=== PATIENT | female | born 2000 | race Caucasian/White ===

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

== ENCOUNTER 2022-08-10 10:43 | Emergency (ER) | payer OTHER ==
[2022-08-10 10:49] VITALS: TEMP 97.7
[2022-08-10 10:59] LABS: Glucose,Whole Blood 90 mg/dL (70-110)
[2022-08-10] MEDS ORDERED: ONDANSETRON 4 MG/2 ML VIAL IVP STA (11:07)
[2022-08-10] MEDS ORDERED: SODIUM CHLORIDE 0.9% 500 ML 500 ML IV STA (11:07)
--- NOTE | 2022-08-10 11:13 | ED ---
General Adult HPI - General Chief complaint: Nausea/Vomiting/Diarrhea Stated complaint: cold sweats, light headed, nausea Time Seen by Provider: 08/10/22 11:05 Source: patient, RN notes reviewed, old records reviewed Mode of arrival: ambulatory Limitations: no limitations - History of Present Illness Initial comments: 22-year-old nontoxic-appearing female presents to the emergency room feeling anxious and shaky with nausea and lower mid abdominal pain. Patient states that she has had these similar symptoms multiple times over several years and told she had ovarian cysts. She states that she has a history of ruptured ovarian cysts and this pain is similar, however she is complaining of a headache and feeling shaky and thinks she may be dehydrated or have high blood glucose levels. She has nausea but no vomiting. No fevers. No diarrhea. States she is sexually active but denies any pelvic pain, vaginal bleeding or vaginal discharge. -: hour(s) (since this morning) Severity scale (1-10): 8 Associated Symptoms: headaches, nausea/vomiting (no vomiting), other (abdominal pain, shaky) - Related Data Home Medications Medication Instructions Recorded Confirmed medroxyPROGESTERone [Depo-Provera] 150 mg IM ONCE 08/10/22 08/10/22 Previous Rx's Medication Instructions Recorded Nitrofurantoin Monohyd/M-Cryst 100 mg PO Q12HR 5 Days #10 cap 08/10/22 [Macrobid] Allergies Allergy/AdvReac Type Severity Reaction Status Date / Time cantaloupe AdvReac Nausea & Verified 08/10/22 11:27 Vomiting & Diarrhea Sesame Seed AdvReac Nausea & Verified 08/10/22 11:26 Vomiting & Diarrhea Review of Systems ROS Statement: Those systems with pertinent positive or pertinent negative responses have been documented in the HPI. ROS Other: All systems not noted in ROS Statement are negative. Past Medical History Past Medical History: No Reported History Additional Past Medical History / Comment(s): MTHFR blood mutation, ovarian cyst rupture 2017, endometriosis History of Any Multi-Drug Resistant Organisms: None Reported Past Surgical History: Adenoidectomy, Ear Surgery Past Psychological History: Anxiety, Depression Smoking Status: Current some day smoker Past Alcohol Use History: None Reported Past Drug Use History: Marijuana General Exam Limitations: no limitations General appearance: alert, in no apparent distress Head exam: Present: atraumatic, normocephalic Eye exam: Present: normal appearance. Absent: scleral icterus, conjunctival injection, periorbital swelling ENT exam: Present: mucous membranes moist Neck exam: Present: full ROM. Absent: meningismus Respiratory exam: Absent: respiratory distress, accessory muscle use Cardiovascular Exam: Present: tachycardia GI/Abdominal exam: Present: soft. Absent: distended, tenderness, guarding, rebound, rigid Extremities exam: Present: full ROM, normal capillary refill. Absent: pedal edema Neurological exam: Present: alert, oriented X3 Psychiatric exam: Present: normal affect, normal mood Skin exam: Present: warm, dry, normal color. Absent: cyanosis, diaphoretic, petechiae, pallor Course Vital Signs 08/10/22 08/10/22 10:46 12:49 Temperature 97.7 F Pulse Rate 103 H Pulse Rate [ 80 Sitting Pulse Oximetery] Pulse Rate [ 111 H Standing Pulse Oximetery] Pulse Rate [ 67 Supine Pulse Oximetery] Respiratory 17 18 Rate Blood Pressure 124/86 Blood Pressure 128/86 [Right Arm Sitting] Blood Pressure 134/93 [Right Arm Standing] Blood Pressure 127/72 [Right Arm Supine] O2 Sat by Pulse 99 98 Oximetry Medical Decision Making - Medical Decision Making Patient was given IV fluids and Zofran for her nausea with resolution of her symptoms. Abdomen is soft and nontender. Patient is afebrile. Hemoglobin and hematocrit are stable. X-rays are unremarkable. Blood glucose 90. Urinalysis positive for UTI, negative for . She was prescribed Macrobid and directed to follow up with the primary care doctor next week. She is agreeable to this plan of care. Case discussed with Dr. Mcnamara Was pt. sent in by a medical professional or institution (, PA, OCCUPATIONAL HEALTH AND SAFETY ADVISER, urgent care, hospital, or jail...) When possible be specific @ -No Did you speak to anyone other than the patient for history (EMS, parent, family, police, friend...)? What history was obtained from this source @ -No Did you review nursing and triage notes (agree or disagree)? Why? @ -I reviewed and agree with nursing and triage notes Were old charts reviewed (outside hosp., previous admission, EMS record, old EKG, old radiological studies, urgent care reports/EKG's, jail records)? Report findings @ -No old charts were reviewed Differential Diagnosis (chest pain, altered mental status, abdominal pain women, abdominal pain men, vaginal bleeding, weakness, fever, dyspnea, syncope, headache, dizziness, GI bleed, back pain, seizure, CVA, palpatations, mental health, musculoskeletal)? @ -UTI, gastritis, cystitis, renal calculi, anxiety, dehydration EKG interpreted by me (3pts min.). @ -n/a X-rays interpreted by me (1pt min.). @ -None done CT interpreted by me (1pt min.). @ -None done U/S interpreted by me (1pt. min.). @ -None done What testing was considered but not performed or refused? (CT, X-rays, U/S, labs)? Why? @ -None What meds were considered but not given or refused? Why? @ -None Did you discuss the management of the patient with other professionals (professionals i.e. , PA, OCCUPATIONAL HEALTH AND SAFETY ADVISER, lab, RT, psych nurse, social services director, dance critic, teacher, credit risk officer, returned case inspector)? Give summary @ -No Was smoking cessation discussed for >3mins.? @ -No Was critical care preformed (if so, how long)? @ -No Were there social determinants of health that impacted care today? How? (Homelessness, low income, unemployed, alcoholism, drug addiction, transportation, low edu. Level, literacy, decrease access to med. care, [facility], rehab)? @ -No Was there de-escalation of care discussed even if they declined (Discuss DNR or withdrawal of care, Hospice)? DNR status @ -No What co-morbidities impacted this encounter? (DM, HTN, Smoking, COPD, CAD, Cancer, CVA, ARF, Chemo, Hep., AIDS, mental health diagnosis, sleep apnea, morbid obesity)? @ -None Was patient admitted / discharged? Hospital course, mention meds given and r oute, prescriptions, significant lab abnormalities, going to OR and other pertinent info. @ -Discharged Undiagnosed new problem with uncertain prognosis? @ -No Drug Therapy requiring intensive monitoring for toxicity (Heparin, Nitro, Insulin, Cardizem)? @ -No Were any procedures done? @ -No Diagnosis/symptom? @ -UTI Acute, or Chronic, or Acute on Chronic? @ -Acute Uncomplicated (without systemic symptoms) or Complicated (systemic symptoms)? @ -default Side effects of treatment? @ -No Exacerbation, Progression, or Severe Exacerbation? @ -No Poses a threat to life or bodily function? How? (Chest pain, [place], [place], pneumonia, PE, COPD, DKA, ARF, appy, cholecystitis, CVA, Diverticulitis, Homicidal, Suicidal, threat to staff... and all critical care pts) @ -No - Lab Data Result diagrams: 08/10/22 11:43 08/10/22 11:43 Lab Results 08/10/22 08/10/22 08/10/22 Range/Units 10:57 11:43 11:43 WBC 4.4 (3.8-10.6) k/uL RBC 4.92 (3.80-5.40) m/uL Hgb 14.2 (11.4-16.0) gm/dL Hct 43.0 (34.0-46.0) % MCV 87.4 (80.0-100.0) fL MCH 28.7 (25.0-35.0) pg MCHC 32.9 (31.0-37.0) g/dL RDW 12.2 (11.5-15.5) % Plt Count 244 (150-450) k/uL MPV 7.7 Neutrophils % 64 % Lymphocytes % 27 % Monocytes % 6 % Eosinophils % 1 % Basophils % 1 % Neutrophils # 2.8 (1.3-7.7) k/uL Lymphocytes # 1.2 (1.0-4.8) k/uL Monocytes # 0.3 (0-1.0) k/uL Eosinophils # 0.0 (0-0.7) k/uL Basophils # 0.0 (0-0.2) k/uL Sodium (137-145) mmol/L Potassium (3.5-5.1) mmol/L Chloride (98-107) mmol/L Carbon Dioxide (22-30) mmol/L Anion Gap mmol/L BUN (7-17) mg/dL Creatinine (0.52-1.04) mg/dL Est GFR (CKD-EPI)AfAm (>60 ml/min/1.73 sqM) Est GFR (CKD-EPI)NonAf (>60 ml/min/1.73 sqM) Glucose (74-99) mg/dL POC Glucose (mg/dL) 90 (70-110) mg/dL POC Glu Carbonator ID Sharon Vargas Calcium (8.4-10.2) mg/dL Total Bilirubin (0.2-1.3) mg/dL AST (14-36) U/L ALT (4-34) U/L Alkaline Phosphatase (38-126) U/L Total Protein (6.3-8.2) g/dL Albumin (3.5-5.0) g/dL Amylase (30-110) U/L Lipase (23-300) U/L Urine Color Yellow Urine Appearance Cloudy H (Clear) Urine pH 5.5 (5.0-8.0) Ur Specific [place] 1.030 (1.001-1.035) Urine Protein 1+ H (Negative) Urine Glucose (UA) Negative (Negative) Urine Ketones Trace H (Negative) Urine Blood Large H (Negative) Urine Nitrite Negative (Negative) Urine Bilirubin Negative (Negative) Urine Urobilinogen 2.0 (<2.0) mg/dL Ur Leukocyte Esterase Large H (Negative) Urine RBC 3 (0-5) /hpf Urine WBC 59 H (0-5) /hpf Ur Squamous Epith Cells 33 H (0-4) /hpf Urine Bacteria Moderate H (None) /hpf Urine Mucus Many H (None) /hpf Urine HCG, Qual (Not Detectd) 08/10/22 08/10/22 Range/Units 11:43 11:43 WBC (3.8-10.6) k/uL RBC (3.80-5.40) m/uL Hgb (11.4-16.0) gm/dL Hct (34.0-46.0) % MCV (80.0-100.0) fL MCH (25.0-35.0) pg MCHC (31.0-37.0) g/dL RDW (11.5-15.5) % Plt Count (150-450) k/uL MPV Neutrophils % % Lymphocytes % % Monocytes % % Eosinophils % % Basophils % % Neutrophils # (1.3-7.7) k/uL Lymphocytes # (1.0-4.8) k/uL Monocytes # (0-1.0) k/uL Eosinophils # (0-0.7) k/uL Basophils # (0-0.2) k/uL Sodium 139 (137-145) mmol/L Potassium 4.7 (3.5-5.1) mmol/L Chloride 102 (98-107) mmol/L Carbon Dioxide 27 (22-30) mmol/L Anion Gap 10 mmol/L BUN 14 (7-17) mg/dL Creatinine 0.89 (0.52-1.04) mg/dL Est GFR (CKD-EPI)AfAm >90 (>60 ml/min/1.73 sqM) Est GFR (CKD-EPI)NonAf >90 (>60 ml/min/1.73 sqM) Glucose 82 (74-99) mg/dL POC Glucose (mg/dL) (70-110) mg/dL POC Glu Carbonator ID Calcium 9.8 (8.4-10.2) mg/dL Total Bilirubin 0.9 (0.2-1.3) mg/dL AST 21 (14-36) U/L ALT 21 (4-34) U/L Alkaline Phosphatase 29 L (38-126) U/L Total Protein 7.1 (6.3-8.2) g/dL Albumin 4.4 (3.5-5.0) g/dL Amylase 58 (30-110) U/L Lipase 108 (23-300) U/L Urine Color Urine Appearance (Clear) Urine pH (5.0-8.0) Ur Specific [place] (1.001-1.035) Urine Protein (Negative) Urine Glucose (UA) (Negative) Urine Ketones (Negative) Urine Blood (Negative) Urine Nitrite (Negative) Urine Bilirubin (Negative) Urine Urobilinogen (<2.0) mg/dL Ur Leukocyte Esterase (Negative) Urine RBC (0-5) /hpf Urine WBC (0-5) /hpf Ur Squamous Epith Cells (0-4) /hpf Urine Bacteria (None) /hpf Urine Mucus (None) /hpf Urine HCG, Qual Not Detected (Not Detectd) Disposition Clinical Impression: UTI (urinary tract infection) Disposition: HOME SELF-CARE Condition: Good Instructions (If sedation given, give patient instructions): Urinary Tract Infection in Women (ED) Additional Instructions: Increase your fluid intake. Take antibiotics as prescribed. Follow-up with the primary care doctor next week. Return to the emergency room with any new or concerning symptoms. Prescriptions: Nitrofurantoin Monohyd/M-Cryst [Macrobid] 100 mg PO Q12HR 5 Days #10 cap Is patient prescribed a controlled substance at d/c from ED?: No Referrals: None,Stated [Primary Care Provider] - 1-2 days Time of Disposition: 12:44
[2022-08-10 12:08] LABS: ALT 21 U/L (4-34); AST 21 U/L (14-36); African American GFR (CKD) >90 (>60 ml/min/1.73 sqM); Albumin 4.4 g/dL (3.5-5.0); Alkaline Phosphatase 29 U/L (38-126); Amylase 58 U/L (30-110); Anion Gap 10 mmol/L; Basophils % (A) 1 %; Blood Urea Nitrogen 14 mg/dL (7-17); Calcium 9.8 mg/dL (8.4-10.2); Carbon Dioxide 27 mmol/L (22-30); Chloride 102 mmol/L (98-107); Eosinophils % (A) 1 %; Glucose 82 mg/dL (74-99); HGB 14.2 gm/dL (11.4-16.0); Lipase 108 U/L (23-300); Lymphocytes # (A) 1.2 k/uL (1.0-4.8); Lymphocytes % (A) 27 %; MCH 28.7 pg (25.0-35.0); MCHC 32.9 g/dL (31.0-37.0); MCV 87.4 fL (80.0-100.0); Mean Platelet Volume 7.7; Monocytes # (A) 0.3 k/uL (0-1.0); Monocytes % (A) 6 %; Neutrophils # (A) 2.8 k/uL (1.3-7.7); Neutrophils % (A) 64 %; Non-African American GFR(CKD) >90 (>60 ml/min/1.73 sqM); Platelet Count 244 k/uL (150-450); Potassium 4.7 mmol/L (3.5-5.1); RBC 4.92 m/uL (3.80-5.40); RDW 12.2 % (11.5-15.5); Sodium 139 mmol/L (137-145); Total Bilirubin 0.9 mg/dL (0.2-1.3); Total Protein 7.1 g/dL (6.3-8.2); WBC 4.4 k/uL (3.8-10.6)
[2022-08-10 12:23] LABS: Appearance,Urine Cloudy (Clear); Bacteria,Urine Moderate /hpf; Bilirubin,Urine Negative (Negative); Blood,Urine Large (Negative); Color,Urine Yellow; Glucose,Urine (UA) Negative (Negative); Ketones,Urine Trace (Negative); Leukocyte Esterase,Urine Large (Negative); Mucus,Urine Many /hpf; Nitrite,Urine Negative (Negative); PH, Urine 5.5 (5.0-8.0); Protein,Urine 1+ (Negative); RBC,Urine 3 /hpf (0-5); Squamous Epithelial Cell,Urine 33 /hpf (0-4); WBC,Urine 59 /hpf (0-5)
[2022-08-10 12:53] VITALS: BP 127/72; PULSE 67; RESP 18
== END 2022-08-10 13:04 | disposition home or self-care (01) ==
LOC: EC 10:43
DX: N39.0 Urinary tract infection, site not specified (principal); Z86.59 Personal history of other mental and behavioral disorders; F17.200 Nicotine dependence, unspecified, uncomplicated; F12.90 Cannabis use, unspecified, uncomplicated; Z91.018 Allergy to other foods; Z88.8 Allergy status to other drugs, medicaments and biological substances
CPT/HCPCS: 36415; 80053; 82150; 83690; 85025; 81001; 81025; 87086; 99284; 96374; 96361; J2405

== ENCOUNTER 2022-10-06 16:01 | Emergency (ER) | payer OTHER ==
[2022-10-06 16:35] VITALS: BP 105/71; PULSE 99; RESP 20; TEMP 98.3
== END 2022-10-06 18:30 | disposition left against medical advice (07) ==
LOC: EC 16:01
DX: Z53.21 Procedure and treatment not carried out due to patient leaving prior to being seen by health care provider (principal)
CPT/HCPCS: 93005; 99499

== ENCOUNTER 2022-10-17 07:42 | Emergency (ER) | payer OTHER ==
[2022-10-17 07:49] VITALS: RESP 18
--- NOTE | 2022-10-17 08:49 | ED ---
General Adult HPI - General Chief complaint: ENT Stated complaint: strep throat Time Seen by Provider: 10/17/22 07:51 Source: patient, RN notes reviewed, old records reviewed Mode of arrival: ambulatory Limitations: no limitations - History of Present Illness Initial comments: Patient is a 22-year-old female presents emergency Department complaining of a sore throat. She is also requesting a test. Symptoms began yesterday. She does have a positive sick contact in her father who has recurrent strep throat. Endorses a "throaty cough." Denies any nausea or vomiting. Denies any diarrhea. Denies any abdominal pain. Denies any vaginal discharge or bleeding. Last menstrual cycle was one month ago. Has no other acute complaints at this time. Presents for further evaluation at this time. - Related Data Home Medications Medication Instructions Recorded Confirmed medroxyPROGESTERone [Depo-Provera] 150 mg IM ONCE 08/10/22 08/10/22 Previous Rx's Medication Instructions Recorded Nitrofurantoin Monohyd/M-Cryst 100 mg PO Q12HR 5 Days #10 cap 08/10/22 [Macrobid] Amoxicillin 875 mg PO Q12HR 10 Days #20 tablet 10/17/22 Allergies Allergy/AdvReac Type Severity Reaction Status Date / Time cantaloupe AdvReac Nausea & Verified 10/17/22 07:49 Vomiting & Diarrhea Sesame Seed AdvReac Nausea & Verified 10/17/22 07:49 Vomiting & Diarrhea Review of Systems ROS Statement: Those systems with pertinent positive or pertinent negative responses have been documented in the HPI. Review of Systems: CONST: Denies fever EYES: Denies blurry vision ENT: Endorses sore throat C/V: Denies Chest pain RESP: Denies shortness of breath GI: Denies abdominal pain : Denies dysuria SKIN: Denies rash. MSK: Denies joint pain. NEURO: Denies headache ROS Other: All systems not noted in ROS Statement are negative. Past Medical History Past Medical History: No Reported History Additional Past Medical History / Comment(s): MTHFR blood mutation, ovarian cyst rupture 2018, endometriosis History of Any Multi-Drug Resistant Organisms: None Reported Past Surgical History: Adenoidectomy, Ear Surgery Past Psychological History: Anxiety, Depression Smoking Status: Current some day smoker Past Alcohol Use History: None Reported Past Drug Use History: Marijuana General Exam - General Exam Comments Initial Comments: General: Appears in no acute distress. HEAD: Normal with no signs of head trauma. EYES: EOMI. ENT: Hearing grossly intact. bilateral tympanic membranes within normal limits. Erythematous posterior oropharynx. No obvious exudates. Uvula is midline. RESPIRATORY: No respiratory distress. Clear breath sounds bilaterally. No hypoxia. No respiratory distress. C/V: Regular rate and rhythm. S1 and S2 auscultated. ABD: Abdomen is nondistended, soft, nontender. EXT: No obvious deformity. SKIN: No rashes or lesions observed on exposed skin. NEURO: Alert and oriented. Limitations: no limitations Course Vital Signs 10/17/22 10/17/22 07:44 10:00 Temperature 98 F 98.4 F Pulse Rate 78 80 Respiratory 18 18 Rate Blood Pressure 113/77 115/76 O2 Sat by Pulse 100 98 Oximetry Medical Decision Making - Medical Decision Making Was pt. sent in by a medical professional or institution (, PA, REBEAMER, urgent care, hospital, or retirement...) When possible be specific @ -No Did you speak to anyone other than the patient for history (EMS, parent, family, police, friend...)? What history was obtained from this source @ -No Did you review nursing and triage notes (agree or disagree)? Why? @ -I reviewed and agree with nursing and triage notes Were old charts reviewed (outside hosp., previous admission, EMS record, old EKG, old radiological studies, urgent care reports/EKG's, retirement records)? Report findings @ -No old charts were reviewed Differential Diagnosis (chest pain, altered mental status, abdominal pain women, abdominal pain men, vaginal bleeding, weakness, fever, dyspnea, syncope, headache, dizziness, GI bleed, back pain, seizure, CVA, palpatations, mental health, musculoskeletal)? @ -Strep pharyngitis, viral pharyngitis, viral syndrome, COVID-19 infection, . This list is not all-inclusive. EKG interpreted by me (3pts min.). @ -none done X-rays interpreted by me (1pt min.). @ -None done CT interpreted by me (1pt min.). @ -None done U/S interpreted by me (1pt. min.). @ -None done What testing was considered but not performed or refused? (CT, X-rays, U/S, labs)? Why? @ -None What meds were considered but not given or refused? Why? @ -None Did you discuss the management of the patient with other professionals (professionals i.e. , PA, REBEAMER, lab, RT, psych nurse, perinatal social worker, field artillery targeting technician, teacher, corporate banking officer, correctional case manager)? Give summary @ -No Was smoking cessation discussed for >3mins.? @ -No Was critical care preformed (if so, how long)? @ -No Were there social determinants of health that impacted care today? How? (Homelessness, low income, unemployed, alcoholism, drug addiction, transportation, low edu. Level, literacy, decrease access to med. care, long term, rehab)? @ -No Was there de-escalation of care discussed even if they declined (Discuss DNR or withdrawal of care, Hospice)? DNR status @ -No What co-morbidities impacted this encounter? (DM, HTN, Smoking, COPD, CAD, Cancer, CVA, ARF, Chemo, Hep., AIDS, mental health diagnosis, sleep apnea, morbid obesity)? @ -None Was patient admitted / discharged? Hospital course, mention meds given and route, prescriptions, significant lab abnormalities, going to OR and other pertinent info. @ -Based on the patient's presentation and physical exam, I'm concerned for pharyngitis. We will obtain strep PCR, as well as suffered for flex testing. Patient is also requesting a test which will be obtained. She was in agreement this plan. Vital signs within acceptable limits. No respiratory distress. No further testing indicated at this time. Patient's labs returned negative for , as well as negative for strep. There was a long delay in obtaining the viral swab as lab was having an error with the first one. I did discuss workup with the patient and we will send the Ceftin swab and I will contact her with results. We also added on a heterophile antibody to test the patient for mono at this time. She was in agreement this plan. Patient is requesting an antibiotic which I believe is reasonable due to her history of persistent strep pharyngitis. I told her to fill it in the next few days if she is not improving. She was in agreement this plan. I will provide the patient with a prescription for amoxicillin. I instructed the patient to follow up with their PCP in the next 1-3 days. I explained that the patient should return to the emergency department if they experience any worsening symptoms. Strict return precautions were discussed with the patient. The patient expressed understanding of these instructions. I answered all questions that the patient had. The patient was discharged home in [good] condition with their prescriptions and follow up information. Patient's viral swabs and heterophile antibody returned negative. I contacted the patient at [phone]. I updated her on the results of her labs. She expressed understanding. I answered all questions that she had. Undiagnosed new problem with uncertain prognosis? @ -No Drug Therapy requiring intensive monitoring for toxicity (Heparin, Nitro, Insulin, Cardizem)? @ -No Were any procedures done? @ -No Diagnosis/symptom? @ -Pharyngitis Acute, or Chronic, or Acute on Chronic? @ -Acute Uncomplicated (without systemic symptoms) or Complicated (systemic symptoms)? @ -Uncomplicated Side effects of treatment? @ -none Exacerbation, Progression, or Severe Exacerbation] @ -no Poses a threat to life or bodily function? @ -no - Lab Data Lab Results 10/17/22 10/17/22 10/17/22 Range/Units 07:58 08:05 09:59 Urine HCG, Qual Not Detected (Not Detectd) Heterophile Antibody Negative (Negative) Influenza Type A (PCR) (Not Detectd) Influenza Type B (PCR) (Not Detectd) RSV (PCR) (Not Detectd) SARS-CoV-2 (PCR) (Not Detectd) Group A Strep (PCR) NOT DETECTED (Not Detectd) 10/17/22 Range/Units 09:59 Urine HCG, Qual (Not Detectd) Heterophile Antibody (Negative) Influenza Type A (PCR) Not Detected (Not Detectd) Influenza Type B (PCR) Not Detected (Not Detectd) RSV (PCR) Not Detected (Not Detectd) SARS-CoV-2 (PCR) Not Detected (Not Detectd) Group A Strep (PCR) (Not Detectd) Disposition Clinical Impression: Sore throat, Pharyngitis Disposition: HOME SELF-CARE Condition: Good Instructions (If sedation given, give patient instructions): Pharyngitis (ED) Prescriptions: Amoxicillin 875 mg PO Q12HR 10 Days #20 tablet Is patient prescribed a controlled substance at d/c from ED?: No Referrals: None,Stated [Primary Care Provider] - 1-2 days Time of Disposition: 09:48
[2022-10-17] MEDS ORDERED: ONDANSETRON 4 MG ODT STARTER PACK 2 TAB BTL PO STA (09:54)
[2022-10-17 10:04] VITALS: BP 115/76; PULSE 80; TEMP 98.4
== END 2022-10-17 10:05 | disposition home or self-care (01) ==
LOC: EC 07:42
DX: J02.9 Acute pharyngitis, unspecified (principal); F41.9 Anxiety disorder, unspecified; F32.A Depression, unspecified; F17.200 Nicotine dependence, unspecified, uncomplicated; F12.90 Cannabis use, unspecified, uncomplicated; Z79.899 Other long term (current) drug therapy; Z91.018 Allergy to other foods; Z88.8 Allergy status to other drugs, medicaments and biological substances; Z20.822 Contact with and (suspected) exposure to COVID-19
CPT/HCPCS: 36415; 81025; 86308; 87636; 87651; 99283

== ENCOUNTER 2023-06-14 10:13 | Emergency (ER) | payer OTHER ==
--- NOTE | 2023-06-14 10:49 | ED ---
General Adult HPI - General Chief complaint: Urogenital Stated complaint: Urogenital Time Seen by Provider: 06/14/23 10:20 Source: patient, RN notes reviewed Mode of arrival: ambulatory Limitations: no limitations - History of Present Illness Initial comments: 23-year-old female presents to the emergency department for evaluation of dysuria, urinary frequency. Symptoms have been going on for around 1 week. She notes that she has been trying cranberry juice and increasing fluid intake without relief. She does express some concern for STDs. She denies any change in vaginal discharge. Denies abdominal, flank pain, fever. - Related Data Home Medications Medication Instructions Recorded Confirmed medroxyPROGESTERone [Depo-Provera] 150 mg IM ONCE 08/10/22 08/10/22 Previous Rx's Medication Instructions Recorded Nitrofurantoin Monohyd/M-Cryst 100 mg PO Q12HR 5 Days #10 cap 08/10/22 [Macrobid] Amoxicillin 875 mg PO Q12HR 10 Days #20 tablet 10/17/22 Fluconazole [Diflucan] 150 mg PO ONCE #1 tab 06/14/23 Nitrofurantoin Monohyd/M-Cryst 100 mg PO Q12HR #10 cap 06/14/23 [Macrobid] metroNIDAZOLE [Flagyl] 500 mg PO BID #14 tab 06/14/23 Allergies Allergy/AdvReac Type Severity Reaction Status Date / Time naproxen [From Aleve] Allergy Anaphylaxis Verified 06/14/23 10:19 cantaloupe AdvReac Nausea & Verified 10/17/22 07:49 Vomiting & Diarrhea Sesame Seed AdvReac Nausea & Verified 10/17/22 07:49 Vomiting & Diarrhea Review of Systems ROS Statement: Those systems with pertinent positive or pertinent negative responses have been documented in the HPI. ROS Other: All systems not noted in ROS Statement are negative. Past Medical History Past Medical History: No Reported History Additional Past Medical History / Comment(s): MTHFR blood mutation, ovarian cyst rupture 2018, endometriosis History of Any Multi-Drug Resistant Organisms: None Reported Past Surgical History: Adenoidectomy, Ear Surgery Past Psychological History: Anxiety, Depression Smoking Status: Current some day smoker Past Alcohol Use History: None Reported Past Drug Use History: Marijuana General Exam Limitations: no limitations General appearance: alert, in no apparent distress Head exam: Present: atraumatic, normocephalic, normal inspection Eye exam: Present: normal appearance, PERRL, EOMI. Absent: scleral icterus, conjunctival injection, periorbital swelling ENT exam: Present: normal exam, mucous membranes moist Neck exam: Present: normal inspection. Absent: tenderness, meningismus, lymphadenopathy Respiratory exam: Present: normal lung sounds bilaterally. Absent: respiratory distress, wheezes, rales, rhonchi, stridor Cardiovascular Exam: Present: regular rate, normal rhythm, normal heart sounds. Absent: systolic murmur, diastolic murmur, rubs, gallop, clicks GI/Abdominal exam: Present: soft, normal bowel sounds. Absent: distended, tenderness, guarding, rebound, rigid Extremities exam: Present: normal inspection, full ROM, normal capillary refill. Absent: tenderness, pedal edema, joint swelling, calf tenderness Neurological exam: Present: alert, oriented X3 Psychiatric exam: Present: normal affect, normal mood Skin exam: Present: warm, dry, intact, normal color. Absent: rash Course Vital Signs 06/14/23 06/14/23 10:17 13:20 Temperature 98.7 F 98.2 F Pulse Rate 93 78 Respiratory 16 18 Rate Blood Pressure 120/83 120/87 O2 Sat by Pulse 98 99 Oximetry Medical Decision Making - Medical Decision Making Was pt. sent in by a medical professional or institution (, PA, PROFILER HAND, urgent care, hospital, or fdc...) When possible be specific @ -No Did you speak to anyone other than the patient for history (EMS, parent, family, police, friend...)? What history was obtained from this source @ -No Did you review nursing and triage notes (agree or disagree)? Why? @ -I reviewed and agree with nursing and triage notes Were old charts reviewed (outside hosp., previous admission, EMS record, old EKG, old radiological studies, urgent care reports/EKG's, fdc records)? Report findings @ -No old charts were reviewed Differential Diagnosis (chest pain, altered mental status, abdominal pain women, abdominal pain men, vaginal bleeding, weakness, fever, dyspnea, syncope, headache, dizziness, GI bleed, back pain, seizure, CVA, palpatations, mental health, musculoskeletal)? @ -UTI, pyelonephritis, STD, bacterial vaginosis, this list is not all inclusive EKG interpreted by me (3pts min.). @ -None X-rays interpreted by me (1pt min.). @ -None done CT interpreted by me (1pt min.). @ -None done U/S interpreted by me (1pt. min.). @ -None done What testing was considered but not performed or refused? (CT, X-rays, U/S, labs)? Why? @ -None What meds were considered but not given or refused? Why? @ -None Did you discuss the management of the patient with other professionals (professionals i.e. , PA, PROFILER HAND, lab, RT, psych nurse, social sciences chair, timber framer helper, teacher, disciplinary hearing officer, rn field case manager)? Give summary @ -No Was smoking cessation discussed for >3mins.? @ -No Was critical care preformed (if so, how long)? @ -No Were there social determinants of health that impacted care today? How? (Homelessness, low income, unemployed, alcoholism, drug addiction, transportation, low edu. Level, literacy, decrease access to med. care, skilled nursing, rehab)? @ -No Was there de-escalation of care discussed even if they declined (Discuss DNR or withdrawal of care, Hospice)? DNR status @ -No What co-morbidities impacted this encounter? (DM, HTN, Smoking, COPD, CAD, Cancer, CVA, ARF, Chemo, Hep., AIDS, mental health diagnosis, sleep apnea, morbid obesity)? @ -None Was patient admitted / discharged? Hospital course, mention meds given and ro aminta, prescriptions, significant lab abnormalities, going to OR and other pertinent info. @ -Discharge. Patient presented to the emergency department for evaluation of dysuria, frequency x 1 week. She has been attempting to treat this at home without improvement. She would like to be tested for STDs as well. UA shows small leukocyte esterase, 17 WBCs. Patient will be treated for UTI with macr obid. Patient also given a dose of Rocephin in the ED. Prescription sent to patient's pharmacy. Urine will be sent for culture. Patient will be discharged home. Patient understand agreeable plan. Patient stable at time of discharge. Case discussed with Dr. Slaughter. Undiagnosed new problem with uncertain prognosis? @ -No Drug Therapy requiring intensive monitoring for toxicity (Heparin, Nitro, Insulin, Cardizem)? @ -No Were any procedures done? @ -No Diagnosis/symptom? @ -UTI Acute, or Chronic, or Acute on Chronic? @ -Acute Uncomplicated (without systemic symptoms) or Complicated (systemic symptoms)? @ -Uncomplicated Side effects of treatment? @ -No Exacerbation, Progression, or Severe Exacerbation? @ -No Poses a threat to life or bodily function? How? (Chest pain, [place], [place], pneumonia, PE, COPD, DKA, ARF, appy, cholecystitis, CVA, Diverticulitis, Homicidal, Suicidal, threat to staff... and all critical care pts) @ -No - Lab Data Lab Results 06/14/23 06/14/23 06/14/23 Range/Units 10:52 10:52 10:52 Urine Color Colorless Urine Appearance Clear (Clear) Urine pH 6.5 (5.0-8.0) Ur Specific [place] 1.016 (1.001-1.035) Urine Protein Negative (Negative) Urine Glucose (UA) Negative (Negative) Urine Ketones Negative (Negative) Urine Blood Negative (Negative) Urine Nitrite Negative (Negative) Urine Bilirubin Negative (Negative) Urine Urobilinogen <2.0 (<2.0) mg/dL Ur Leukocyte Esterase Small H (Negative) Urine RBC 1 (0-5) /hpf Urine WBC 17 H (0-5) /hpf Ur Squamous Epith Cells 2 (0-4) /hpf Urine Bacteria Rare H (None) /hpf Urine Mucus Rare H (None) /hpf Urine HCG, Qual Not Detected (Not Detectd) Chlamydia DNA (PCR) Negative (Negative) N.gonorrhoeae DNA Probe Negative (Negative) Disposition Clinical Impression: Urinary tract infection Disposition: HOME SELF-CARE Condition: Stable Instructions (If sedation given, give patient instructions): Urinary Tract Infection in Women (ED) Additional Instructions: Please shredder picker antibiotics and take to completion. Follow up with your primary care provider. Return to the emergency department for new or worsening symptoms. Prescriptions: Fluconazole [Diflucan] 150 mg PO ONCE #1 tab metroNIDAZOLE [Flagyl] 500 mg PO BID #14 tab Nitrofurantoin Monohyd/M-Cryst [Macrobid] 100 mg PO Q12HR #10 cap Is patient prescribed a controlled substance at d/c from ED?: No Referrals: None,Stated [Primary Care Provider] - 1-2 days
[2023-06-14] MEDS: cefTRIAXone IN SWFI 1,000 MG/10 ML SYRINGE IVP STA (11:06)
[2023-06-14] MEDS: cefTRIAXone 250 MG VIAL IM STA (11:06)
[2023-06-14 11:45] LABS: Appearance,Urine Clear (Clear); Bacteria,Urine Rare /hpf; Bilirubin,Urine Negative (Negative); Blood,Urine Negative (Negative); Color,Urine Colorless; Glucose,Urine (UA) Negative (Negative); Ketones,Urine Negative (Negative); Leukocyte Esterase,Urine Small (Negative); Mucus,Urine Rare /hpf; Nitrite,Urine Negative (Negative); PH, Urine 6.5 (5.0-8.0); Protein,Urine Negative (Negative); RBC,Urine 1 /hpf (0-5); Specific Gravity,Urine 1.016 (1.001-1.035); Squamous Epithelial Cell,Urine 2 /hpf (0-4); Urobilinogen,Urine <2.0 mg/dL (<2.0); WBC,Urine 17 /hpf (0-5)
[2023-06-14 13:25] VITALS: BP 120/87; PULSE 78; RESP 18; TEMP 98.2
[2023-06-15 14:25] LABS: N. gonorrhoeae,PCR Negative (Negative)
[2023-06-15 14:34] LABS: C. trachomatis,PCR Negative (Negative)
== END 2023-06-14 13:22 | disposition home or self-care (01) ==
LOC: EC 10:13
DX: N39.0 Urinary tract infection, site not specified (principal); F17.200 Nicotine dependence, unspecified, uncomplicated; Z88.6 Allergy status to analgesic agent; Z88.8 Allergy status to other drugs, medicaments and biological substances
CPT/HCPCS: 81001; 81025; 87491; 87591; 87086; 87077; 87186; 99283; 96374; J0696

== ENCOUNTER 2023-07-10 10:43 | Emergency (ER) | payer OTHER ==
[2023-07-10 11:37] VITALS: RESP 18; TEMP 98.1
[2023-07-10 12:12] LABS: Basophils # (A) 0.1 k/uL (0-0.2); Basophils % (A) 1 %; Eosinophils # (A) 0.1 k/uL (0-0.7); Eosinophils % (A) 1 %; HCT 44.5 % (34.0-46.0); HGB 14.4 gm/dL (11.4-16.0); Lymphocytes # (A) 1.1 k/uL (1.0-4.8); Lymphocytes % (A) 16 %; MCH 29.7 pg (25.0-35.0); MCHC 32.4 g/dL (31.0-37.0); MCV 91.6 fL (80.0-100.0); Mean Platelet Volume 7.8; Monocytes # (A) 0.3 k/uL (0-1.0); Monocytes % (A) 4 %; Neutrophils # (A) 5.4 k/uL (1.3-7.7); Neutrophils % (A) 77 %; Platelet Count 207 k/uL (150-450); RBC 4.86 m/uL (3.80-5.40); RDW 12.2 % (11.5-15.5)
[2023-07-10 12:25] LABS: Appearance,Urine Clear (Clear); Bilirubin,Urine Negative (Negative); Blood,Urine Negative (Negative); Color,Urine Colorless; Glucose,Urine (UA) Negative (Negative); Ketones,Urine Negative (Negative); Leukocyte Esterase,Urine Small (Negative); Mucus,Urine Rare /hpf; Nitrite,Urine Negative (Negative); Protein,Urine Negative (Negative); RBC,Urine 1 /hpf (0-5); Specific Gravity,Urine 1.018 (1.001-1.035); Squamous Epithelial Cell,Urine 3 /hpf (0-4); Urobilinogen,Urine <2.0 mg/dL (<2.0); WBC,Urine 2 /hpf (0-5)
[2023-07-10 12:26] LABS: Potassium 4.7 mmol/L (3.5-5.1)
[2023-07-10 12:27] LABS: ALT 14 U/L (4-34); AST 18 U/L (14-36); African American GFR (CKD) >90 (>60 ml/min/1.73 sqM); Albumin 4.3 g/dL (3.5-5.0); Alkaline Phosphatase 30 U/L (38-126); Anion Gap 8 mmol/L; Blood Urea Nitrogen 8 mg/dL (7-17); Calcium 9.4 mg/dL (8.4-10.2); Carbon Dioxide 23 mmol/L (22-30); Chloride 109 mmol/L (98-107); Glucose 91 mg/dL (74-99); Non-African American GFR(CKD) >90 (>60 ml/min/1.73 sqM); Sodium 140 mmol/L (137-145); Total Bilirubin 0.6 mg/dL (0.2-1.3); Total Protein 6.8 g/dL (6.3-8.2)
[2023-07-10 12:40] LABS: HCG,Quantitative Serum <2.4 mIU/mL
--- NOTE | 2023-07-10 13:11 | US ---
EXAMINATION TYPE: US transvaginal DATE OF EXAM: 07/10/2023 COMPARISON: 05/27/2020 CLINICAL INDICATION: Female, 23 years old with history of pain; Hx endometriosis with ovarian cyst ru pture. TECHNIQUE: Transvaginal (TV). Date of LMP: 06/02/2023 EXAM MEASUREMENTS: Uterus: 8.7 x 3.7 x 4.8 cm Endometrial Stripe: 0.8 cm Right Ovary: 3.7 x 2.6 x 1.7 cm Left Ovary: 2.8 x 3.7 x 1.6 cm 1. Uterus: Anteverted wnl 2. Endometrium: wnl 3. Right Ovary: wnl 4. Left Ovary: ? hemorrhagic Cystic area = 2.0 x 1.3 x 1.9 cm Spectral, color and waveform doppler imaging shows good arterial and venous flow within the ovaries ; there is no evidence for ovarian torsion. 5. Bilateral Adnexa: Fluid left adnexa 6. Posterior cul-de-sac: wnl IMPRESSION: 1. There is a hypoechoic lesion measuring 2 cm within the left ovary. Differential diagnosis would in clude a hemorrhagic cyst. Recommend correlation with beta-hCG to exclude other etiologies including e ctopic . 2. Small amount of fluid within the pelvis is nonspecific.
--- NOTE | 2023-07-10 13:25 | ED ---
Female Urogenital HPI - General Chief complaint: Urogenital Stated complaint: Irregular menstrual cycle Time Seen by Provider: 07/10/23 10:49 Source: patient, RN notes reviewed Mode of arrival: ambulatory Limitations: no limitations - History of Present Illness Initial comments: 23-year-old female presents emergency department chief complaint of irregular menstrual cycle. Patient states she is 3 weeks late on her menstrual cycle her last period was very short she is concerned about possible or ectopic states she has some lower abdominal cramping and pain. Denies any vaginal bleeding no dysuria no flank pain no other complaints. - Related Data Home Medications Medication Instructions Recorded Confirmed medroxyPROGESTERone [Depo-Provera] 150 mg IM ONCE 08/10/22 08/10/22 Previous Rx's Medication Instructions Recorded Nitrofurantoin Monohyd/M-Cryst 100 mg PO Q12HR 5 Days #10 cap 08/10/22 [Macrobid] Amoxicillin 875 mg PO Q12HR 10 Days #20 tablet 10/17/22 Fluconazole [Diflucan] 150 mg PO ONCE #1 tab 06/14/23 Nitrofurantoin Monohyd/M-Cryst 100 mg PO Q12HR #10 cap 06/14/23 [Macrobid] metroNIDAZOLE [Flagyl] 500 mg PO BID #14 tab 06/14/23 Allergies Allergy/AdvReac Type Severity Reaction Status Date / Time naproxen [From Aleve] Allergy Anaphylaxis Verified 07/10/23 11:05 cantaloupe AdvReac Nausea & Verified 07/10/23 11:05 Vomiting & Diarrhea Sesame Seed AdvReac Nausea & Verified 07/10/23 11:05 Vomiting & Diarrhea Review of Systems ROS Statement: Those systems with pertinent positive or pertinent negative responses have been documented in the HPI. ROS Other: All systems not noted in ROS Statement are negative. Past Medical History Past Medical History: No Reported History Additional Past Medical History / Comment(s): MTHFR blood mutation, ovarian cyst rupture 2018, endometriosis History of Any Multi-Drug Resistant Organisms: None Reported Past Surgical History: Adenoidectomy, Ear Surgery Past Psychological History: Anxiety, Depression Smoking Status: Current some day smoker Past Alcohol Use History: Occasional Past Drug Use History: Marijuana General Exam Limitations: no limitations General appearance: alert, in no apparent distress Head exam: Present: atraumatic, normocephalic, normal inspection Respiratory exam: Present: normal lung sounds bilaterally. Absent: respiratory distress, wheezes, rales, rhonchi, stridor Cardiovascular Exam: Present: regular rate, normal rhythm, normal heart sounds. Absent: systolic murmur, diastolic murmur, rubs, gallop, clicks GI/Abdominal exam: Present: soft, normal bowel sounds. Absent: distended, tenderness, guarding, rebound, rigid Course Vital Signs 07/10/23 07/10/23 11:00 13:36 Temperature 98.1 F 98.1 F Pulse Rate 70 81 Respiratory 18 18 Rate Blood Pressure 123/84 133/84 O2 Sat by Pulse 99 100 Oximetry Medical Decision Making - Medical Decision Making Was pt. sent in by a medical professional or institution (, C[facility], CUBING MACHINE TENDER, urgent care, hospital, or fci...) When possible be specific @ -No Did you speak to anyone other than the patient for history (EMS, parent, family, police, friend...)? What history was obtained from this source @ -No Did you review nursing and triage notes (agree or disagree)? Why? @ -I reviewed and agree with nursing and triage notes Were old charts reviewed (outside hosp., previous admission, EMS record, old EKG, old radiological studies, urgent care reports/EKG's, fci records)? Report findings @ -No old charts were reviewed Differential Diagnosis (chest pain, altered mental status, abdominal pain women, abdominal pain men, vaginal bleeding, weakness, fever, dyspnea, syncope, headache, dizziness, GI bleed, back pain, seizure, CVA, palpatations, mental health, musculoskeletal)? @ -MD torrential abdominal pain woman EKG interpreted by me (3pts min.). @ -None X-rays interpreted by me (1pt min.). @ -None done CT interpreted by me (1pt min.). @ -None done U/S interpreted by me (1pt. min.). @ -[Ultrasound transvaginal shows evidence of hemorrhagic ovarian cyst What testing was considered but not performed or refused? (CT, X-rays, U/S, labs)? Why? @ -None What meds were considered but not given or refused? Why? @ -None Did you discuss the management of the patient with other professionals (professionals i.e. , CRISTIANO, CUBING MACHINE TENDER, lab, RT, psych nurse, neonatal social worker, master at arms, teacher, fisheries enforcement officer, clinical case manager)? Give summary @ -No Was smoking cessation discussed for >3mins.? @ -No Was critical care preformed (if so, how long)? @ -No Were there social determinants of health that impacted care today? How? (Homelessness, low income, unemployed, alcoholism, drug addiction, transportation, low edu. Level, literacy, decrease access to med. care, snf, rehab)? @ -No Was there de-escalation of care discussed even if they declined (Discuss DNR or withdrawal of care, Hospice)? DNR status @ -No What co-morbidities impacted this encounter? (DM, HTN, Smoking, COPD, CAD, Cancer, CVA, ARF, Chemo, Hep., AIDS, mental health diagnosis, sleep apnea, morbid obesity)? @ -None Was patient admitted / discharged? Hospital course, mention meds given and route, prescriptions, significant lab abnormalities, going to OR and other pertinent info. @ -Discharge patient ultrasound shows hemorrhagic cyst, workup and laboratory studies urinalysis unremarkable negative hCG. Undiagnosed new problem with uncertain prognosis? @ -No Drug Therapy requiring intensive monitoring for toxicity (Heparin, Nitro, Insulin, Cardizem)? @ -No Were any procedures done? @ -No Diagnosis/symptom? @ -Abnormal menstrual cycle, hemorrhagic cyst ovarian Acute, or Chronic, or Acute on Chronic? @ -Acute Uncomplicated (without systemic symptoms) or Complicated (systemic symptoms)? @ -[Uncomplicated Side effects of treatment? @ -No Exacerbation, Progression, or Severe Exacerbation? @ -No Poses a threat to life or bodily function? How? (Chest pain, [place], [place], pneumonia, PE, COPD, DKA, ARF, appy, cholecystitis, CVA, Diverticulitis, Homicidal, Suicidal, threat to staff... and all critical care pts) @ -No - Lab Data Result diagrams: 07/10/23 12:01 07/10/23 12:01 Lab Results 07/10/23 07/10/23 07/10/23 Range/Units 11:54 12:01 12:01 WBC 7.0 (3.8-10.6) k/uL RBC 4.86 (3.80-5.40) m/uL Hgb 14.4 (11.4-16.0) gm/dL Hct 44.5 (34.0-46.0) % MCV 91.6 (80.0-100.0) fL MCH 29.7 (25.0-35.0) pg MCHC 32.4 (31.0-37.0) g/dL RDW 12.2 (11.5-15.5) % Plt Count 207 (150-450) k/uL MPV 7.8 Neutrophils % 77 % Lymphocytes % 16 % Monocytes % 4 % Eosinophils % 1 % Basophils % 1 % Neutrophils # 5.4 (1.3-7.7) k/uL Lymphocytes # 1.1 (1.0-4.8) k/uL Monocytes # 0.3 (0-1.0) k/uL Eosinophils # 0.1 (0-0.7) k/uL Basophils # 0.1 (0-0.2) k/uL Sodium 140 (137-145) mmol/L Potassium 4.7 (3.5-5.1) mmol/L Chloride 109 H (98-107) mmol/L Carbon Dioxide 23 (22-30) mmol/L Anion Gap 8 mmol/L BUN 8 (7-17) mg/dL Creatinine 0.69 (0.52-1.04) mg/dL Est GFR (CKD-EPI)AfAm >90 (>60 ml/min/1.73 sqM) Est GFR (CKD-EPI)NonAf >90 (>60 ml/min/1.73 sqM) Glucose 91 (74-99) mg/dL Calcium 9.4 (8.4-10.2) mg/dL Total Bilirubin 0.6 (0.2-1.3) mg/dL AST 18 (14-36) U/L ALT 14 (4-34) U/L Alkaline Phosphatase 30 L (38-126) U/L Total Protein 6.8 (6.3-8.2) g/dL Albumin 4.3 (3.5-5.0) g/dL TSH 1.230 (0.465-4.680) mIU/L HCG, Quant <2.4 mIU/mL Urine Color Colorless Urine Appearance Clear (Clear) Urine pH 7.0 (5.0-8.0) Ur Specific [place] 1.018 (1.001-1.035) Urine Protein Negative (Negative) Urine Glucose (UA) Negative (Negative) Urine Ketones Negative (Negative) Urine Blood Negative (Negative) Urine Nitrite Negative (Negative) Urine Bilirubin Negative (Negative) Urine Urobilinogen <2.0 (<2.0) mg/dL Ur Leukocyte Esterase Small H (Negative) Urine RBC 1 (0-5) /hpf Urine WBC 2 (0-5) /hpf Ur Squamous Epith Cells 3 (0-4) /hpf Urine Mucus Rare H (None) /hpf Disposition Clinical Impression: Abnormal menstrual cycle, Hemorrhagic ovarian cyst Disposition: HOME SELF-CARE Condition: Stable Instructions (If sedation given, give patient instructions): Ovarian Cyst (ED) Additional Instructions: Please return to the Emergency Department if symptoms worsen or any other concerns. Is patient prescribed a controlled substance at d/c from ED?: No Referrals: None,Stated [Primary Care Provider] - 1-2 days Forms: Area PCPs Time of Disposition: 13:25
[2023-07-10 13:44] VITALS: BP 133/84; PULSE 81
== END 2023-07-10 13:44 | disposition home or self-care (01) ==
LOC: EC 10:43
DX: N92.6 Irregular menstruation, unspecified (principal); N83.202 Unspecified ovarian cyst, left side; F17.200 Nicotine dependence, unspecified, uncomplicated; Z88.6 Allergy status to analgesic agent; Z91.018 Allergy to other foods
CPT/HCPCS: 36415; 76830; 80053; 81001; 84443; 84702; 85025; 93975; 99284

== ENCOUNTER 2023-07-14 19:30 | Emergency (ER) | payer OTHER ==
[2023-07-14 20:00] VITALS: TEMP 98.2
[2023-07-14] MEDS: SODIUM CHLORIDE 0.9% 1,000 ML IV STA (20:12)
[2023-07-14] MEDS: ONDANSETRON 4 MG/2 ML VIAL IVP STA (20:14)
[2023-07-14] MEDS: KETOROLAC 15 MG/ML 1 ML VIAL IVP STA (20:15)
[2023-07-14] MEDS: HYDROmorphone 1 MG/ML 1 ML SYRINGE IVP STA (20:17)
[2023-07-14 20:20] LABS: Basophils # (A) 0.1 k/uL (0-0.2); Basophils % (A) 1 %; Eosinophils # (A) 0.1 k/uL (0-0.7); Eosinophils % (A) 2 %; HCT 44.8 % (34.0-46.0); HGB 14.9 gm/dL (11.4-16.0); Lymphocytes # (A) 1.5 k/uL (1.0-4.8); Lymphocytes % (A) 16 %; MCH 30.2 pg (25.0-35.0); MCHC 33.4 g/dL (31.0-37.0); MCV 90.5 fL (80.0-100.0); Mean Platelet Volume 7.9; Monocytes # (A) 0.3 k/uL (0-1.0); Monocytes % (A) 4 %; Neutrophils % (A) 77 %; Platelet Count 229 k/uL (150-450); RBC 4.95 m/uL (3.80-5.40); RDW 12.1 % (11.5-15.5); WBC 9.1 k/uL (3.8-10.6)
[2023-07-14 20:33] LABS: ALT 19 U/L (4-34); AST 21 U/L (14-36); African American GFR (CKD) >90 (>60 ml/min/1.73 sqM); Albumin 4.6 g/dL (3.5-5.0); Alkaline Phosphatase 34 U/L (38-126); Anion Gap 15 mmol/L; Blood Urea Nitrogen 11 mg/dL (7-17); Calcium 9.8 mg/dL (8.4-10.2); Carbon Dioxide 15 mmol/L (22-30); Chloride 107 mmol/L (98-107); Glucose 131 mg/dL (74-99); Non-African American GFR(CKD) >90 (>60 ml/min/1.73 sqM); Potassium 3.9 mmol/L (3.5-5.1); Sodium 137 mmol/L (137-145); Total Bilirubin 0.8 mg/dL (0.2-1.3)
--- NOTE | 2023-07-14 21:07 | US ---
EXAMINATION TYPE: US transvaginal DATE OF EXAM: 07/14/2023 COMPARISON: 07/10/2023 CLINICAL INDICATION: Female, 23 years old with history of sudden onset lower abdpain; bilateral pelvi c pain today TECHNIQUE: Transvaginal (TV). Date of LMP: 07/14/23 EXAM MEASUREMENTS: Uterus: 8.0 x 3.9 x 4.6 cm Endometrial Stripe: 0.5 cm Right Ovary: 2.7 x 2.7 x 1.7 cm Left Ovary: 2.8 x 3.5 x 1.1 cm 1. Uterus: Anteverted wnl 2. Endometrium: wnl 3. Right Ovary: follicles noted 4. Left Ovary: follicles noted Spectral, color and waveform doppler imaging shows good arterial and venous flow within the ovaries ; there is no evidence for ovarian torsion. 5. Bilateral Adnexa: wnl 6. Posterior cul-de-sac: wnl IMPRESSION: 1. No evidence for acute process. 2. Endometrium within normal limits for thickness.
[2023-07-14 22:47] LABS: Appearance,Urine Turbid (Clear); Bacteria,Urine Rare /hpf; Bilirubin,Urine Negative (Negative); Blood,Urine Large (Negative); Color,Urine Light Red; Glucose,Urine (UA) Negative (Negative); Hyaline Casts,Urine 2 /lpf (0-2); Ketones,Urine 2+ (Negative); Leukocyte Esterase,Urine Trace (Negative); Mucus,Urine Many /hpf; Nitrite,Urine Negative (Negative); PH, Urine 5.5 (5.0-8.0); Protein,Urine 1+ (Negative); RBC,Urine 60 /hpf (0-5); Specific Gravity,Urine 1.029 (1.001-1.035); Squamous Epithelial Cell,Urine 5 /hpf (0-4); Urobilinogen,Urine <2.0 mg/dL (<2.0); WBC,Urine 31 /hpf (0-5)
--- NOTE | 2023-07-14 22:54 | ED ---
Abdominal Pain HPI - General Chief Complaint: Abdominal Pain Stated Complaint: ovarian cyst Time Seen by Provider: 07/14/23 19:40 Source: EMS Mode of arrival: EMS - History of Present Illness Initial Comments: 23-year-old female presents emergency department reporting bilateral lower quadrant pelvic pain. States that her pain was sudden onset just prior to calling EMS. States that she felt a sudden sharp pain with nausea. States that she has had history of similar pain in the past when she had cysts rupture. She called EMS but was not provided with any medications for the pain. Patient arrives and is in significant distress. She is retching in the exam room. She denies any urinary complaints to include burning, blood or frequency. No diarrhea, constipation, black or bloody stools. Denies concern for . Does admit to some vaginal bleeding at this time as she is on her menstrual cycle. No other alleviating, precipitating factors - Related Data Home Medications Medication Instructions Recorded Confirmed medroxyPROGESTERone [Depo-Provera] 150 mg IM ONCE 08/10/22 08/10/22 Previous Rx's Medication Instructions Recorded Nitrofurantoin Monohyd/M-Cryst 100 mg PO Q12HR 5 Days #10 cap 08/10/22 [Macrobid] Amoxicillin 875 mg PO Q12HR 10 Days #20 tablet 10/17/22 Fluconazole [Diflucan] 150 mg PO ONCE #1 tab 06/14/23 Nitrofurantoin Monohyd/M-Cryst 100 mg PO Q12HR #10 cap 06/14/23 [Macrobid] metroNIDAZOLE [Flagyl] 500 mg PO BID #14 tab 06/14/23 Allergies Allergy/AdvReac Type Severity Reaction Status Date / Time cantaloupe AdvReac Nausea & Verified 07/14/23 19:47 Vomiting & Diarrhea Sesame Seed AdvReac Nausea & Verified 07/14/23 19:47 Vomiting & Diarrhea Review of Systems ROS Statement: Those systems with pertinent positive or pertinent negative responses have been documented in the HPI. ROS Other: All systems not noted in ROS Statement are negative. Past Medical History Past Medical History: No Reported History Additional Past Medical History / Comment(s): MTHFR blood mutation, ovarian cyst rupture 2018, endometriosis History of Any Multi-Drug Resistant Organisms: None Reported Past Surgical History: Adenoidectomy, Ear Surgery Past Psychological History: Anxiety, Depression Past Alcohol Use History: None Reported General Exam General appearance: alert, in distress Head exam: Present: atraumatic, normocephalic, normal inspection Eye exam: Present: normal appearance, PERRL, EOMI. Absent: scleral icterus, conjunctival injection, periorbital swelling ENT exam: Present: normal exam, mucous membranes moist Neck exam: Present: normal inspection. Absent: tenderness, meningismus, lymphadenopathy Respiratory exam: Present: normal lung sounds bilaterally. Absent: respiratory distress, wheezes, rales, rhonchi, stridor Cardiovascular Exam: Present: regular rate, normal rhythm, normal heart sounds. Absent: systolic murmur, diastolic murmur, rubs, gallop, clicks GI/Abdominal exam: Present: tenderness (Bilateral lower pelvic regions as well as suprapubic) Course Vital Signs 07/14/23 07/14/23 07/14/23 19:37 22:00 23:10 Temperature 98.2 F Pulse Rate 95 68 Respiratory 20 18 Rate Blood Pressure 102/76 97/51 101/77 O2 Sat by Pulse 97 98 Oximetry Medical Decision Making - Medical Decision Making Was pt. sent in by a medical professional or institution (, PA, TUBE WRAPPER, urgent care, hospital, or half-way...) When possible be specific @ -No Did you speak to anyone other than the patient for history (EMS, parent, family, police, friend...)? What history was obtained from this source @ -Spoke with EMS for history Did you review nursing and triage notes (agree or disagree)? Why? @ -I reviewed and agree with nursing and triage notes Were old charts reviewed (outside hosp., previous admission, EMS record, old EKG, old radiological studies, urgent care reports/EKG's, half-way records)? Report findings @ -No old charts were reviewed Differential Diagnosis (chest pain, altered mental status, abdominal pain women, abdominal pain men, vaginal bleeding, weakness, fever, dyspnea, syncope, headache, dizziness, GI bleed, back pain, seizure, CVA, palpatations, mental health, musculoskeletal)? @ -Differential Abdominal Pain Women: Appendicitis, Cholecystitis, diverticulosis, ischemic bowel, pancreatitis, hepatitis, UTI, gastroenteritis, AAA, incarcerated hernia, bowel obstruction, constipation, inflammatory bowel, hepatitis, peptic ulcer disease, splenic infarction, perforated viscus, vulvitis, ovarian torsion, PID, kidney stone, placenta abruption, this is not meant to be an all-inclusive list EKG interpreted by me (3pts min.). @ -Not done X-rays interpreted by me (1pt min.). @ -None done CT interpreted by me (1pt min.). @ -None done U/S interpreted by me (1pt. min.). @ -Yes and demonstrates no acute findings. The large ovarian cyst is not seen on today's exam What testing was considered but not performed or refused? (CT, X-rays, U/S, labs)? Why? @ -None What meds were considered but not given or refused? Why? @ -None Did you discuss the management of the patient with other professionals (professionals i.e. , PA, TUBE WRAPPER, lab, RT, psych nurse, high school social studies teacher, director of rehabilitative services, teacher, correctional officer chief, case finisher)? Give summary @ -No Was smoking cessation discussed for >3mins.? @ -No Was critical care preformed (if so, how long)? @ -No Were there social determinants of health that impacted care today? How? (Homelessness, low income, unemployed, alcoholism, drug addiction, transportation, low edu. Level, literacy, decrease access to med. care, fpc, rehab)? @ -No Was there de-escalation of care discussed even if they declined (Discuss DNR or withdrawal of care, Hospice)? DNR status @ -No What co-morbidities impacted this encounter? (DM, HTN, Smoking, COPD, CAD, Ca ncer, CVA, ARF, Chemo, Hep., AIDS, mental health diagnosis, sleep apnea, morbid obesity)? @ -None Was patient admitted / discharged? Hospital course, mention meds given and route, prescriptions, significant lab abnormalities, going to OR and other pertinent info. @ -Upon arrival patient was placed into room 4. She is in no acute distress. IV is established. She was given pain and nausea medications. Laboratory studies are conducted. Ultrasound was performed. Patient had been in the emerg ency department this past week for similar complaint. Ultrasound demonstrated a large left ovarian cyst. Repeat ultrasound today does not demonstrate that the cyst is there. Possibilities include cyst rupture. This is conveyed to the patient. At this time the patient is stable for discharge home. Recommend that she alternate taking Motrin Tylenol for pain. Follow-up with PLANT QUALITY MANAGER and return for any new or worsening symptoms. Patient agreeable to plan was discharged in stable condition Undiagnosed new problem with uncertain prognosis? @ -No Drug Therapy requiring intensive monitoring for toxicity (Heparin, Nitro, Insulin, Cardizem)? @ -No Were any procedures done? @ -No Diagnosis/symptom? @ -Acute lower pelvic pain, suspected cyst rupture Acute, or Chronic, or Acute on Chronic? @ -Acute Uncomplicated (without systemic symptoms) or Complicated (systemic symptoms)? @ -Complicated Side effects of treatment? @ -No Exacerbation, Progression, or Severe Exacerbation? @ -No Poses a threat to life or bodily function? How? (Chest pain, [place], [place], pneumonia, PE, COPD, DKA, ARF, appy, cholecystitis, CVA, Diverticulitis, Homicidal, Suicidal, threat to staff... and all critical care pts) @ -No - Lab Data Result diagrams: 07/14/23 20:08 07/14/23 20:08 Lab Results 07/14/23 07/14/23 07/14/23 Range/Units 20:08 20:08 21:29 WBC 9.1 (3.8-10.6) k/uL RBC 4.95 (3.80-5.40) m/uL Hgb 14.9 (11.4-16.0) gm/dL Hct 44.8 (34.0-46.0) % MCV 90.5 (80.0-100.0) fL MCH 30.2 (25.0-35.0) pg MCHC 33.4 (31.0-37.0) g/dL RDW 12.1 (11.5-15.5) % Plt Count 229 (150-450) k/uL MPV 7.9 Neutrophils % 77 % Lymphocytes % 16 % Monocytes % 4 % Eosinophils % 2 % Basophils % 1 % Neutrophils # 7.0 (1.3-7.7) k/uL Lymphocytes # 1.5 (1.0-4.8) k/uL Monocytes # 0.3 (0-1.0) k/uL Eosinophils # 0.1 (0-0.7) k/uL Basophils # 0.1 (0-0.2) k/uL Sodium 137 (137-145) mmol/L Potassium 3.9 (3.5-5.1) mmol/L Chloride 107 (98-107) mmol/L Carbon Dioxide 15 L (22-30) mmol/L Anion Gap 15 mmol/L BUN 11 (7-17) mg/dL Creatinine 0.74 (0.52-1.04) mg/dL Est GFR (CKD-EPI)AfAm >90 (>60 ml/min/1.73 sqM) Est GFR (CKD-EPI)NonAf >90 (>60 ml/min/1.73 sqM) Glucose 131 H (74-99) mg/dL Calcium 9.8 (8.4-10.2) mg/dL Total Bilirubin 0.8 (0.2-1.3) mg/dL AST 21 (14-36) U/L ALT 19 (4-34) U/L Alkaline Phosphatase 34 L (38-126) U/L Total Protein 7.0 (6.3-8.2) g/dL Albumin 4.6 (3.5-5.0) g/dL Urine Color Light Red Urine Appearance Turbid H (Clear) Urine pH 5.5 (5.0-8.0) Ur Specific [place] 1.029 (1.001-1.035) Urine Protein 1+ H (Negative) Urine Glucose (UA) Negative (Negative) Urine Ketones 2+ H (Negative) Urine Blood Large H (Negative) Urine Nitrite Negative (Negative) Urine Bilirubin Negative (Negative) Urine Urobilinogen <2.0 (<2.0) mg/dL Ur Leukocyte Esterase Trace H (Negative) Urine RBC 60 H (0-5) /hpf Urine WBC 31 H (0-5) /hpf Ur Squamous Epith Cells 5 H (0-4) /hpf Urine Bacteria Rare H (None) /hpf Hyaline Casts 2 (0-2) /lpf Urine Mucus Many H (None) /hpf Urine HCG, Qual (Not Detectd) 07/14/23 Range/Units 21:29 WBC (3.8-10.6) k/uL RBC (3.80-5.40) m/uL Hgb (11.4-16.0) gm/dL Hct (34.0-46.0) % MCV (80.0-100.0) fL MCH (25.0-35.0) pg MCHC (31.0-37.0) g/dL RDW (11.5-15.5) % Plt Count (150-450) k/uL MPV Neutrophils % % Lymphocytes % % Monocytes % % Eosinophils % % Basophils % % Neutrophils # (1.3-7.7) k/uL Lymphocytes # (1.0-4.8) k/uL Monocytes # (0-1.0) k/uL Eosinophils # (0-0.7) k/uL Basophils # (0-0.2) k/uL Sodium (137-145) mmol/L Potassium (3.5-5.1) mmol/L Chloride (98-107) mmol/L Carbon Dioxide (22-30) mmol/L Anion Gap mmol/L BUN (7-17) mg/dL Creatinine (0.52-1.04) mg/dL Est GFR (CKD-EPI)AfAm (>60 ml/min/1.73 sqM) Est GFR (CKD-EPI)NonAf (>60 ml/min/1.73 sqM) Glucose (74-99) mg/dL Calcium (8.4-10.2) mg/dL Total Bilirubin (0.2-1.3) mg/dL AST (14-36) U/L ALT (4-34) U/L Alkaline Phosphatase (38-126) U/L Total Protein (6.3-8.2) g/dL Albumin (3.5-5.0) g/dL Urine Color Urine Appearance (Clear) Urine pH (5.0-8.0) Ur Specific [place] (1.001-1.035) Urine Protein (Negative) Urine Glucose (UA) (Negative) Urine Ketones (Negative) Urine Blood (Negative) Urine Nitrite (Negative) Urine Bilirubin (Negative) Urine Urobilinogen (<2.0) mg/dL Ur Leukocyte Esterase (Negative) Urine RBC (0-5) /hpf Urine WBC (0-5) /hpf Ur Squamous Epith Cells (0-4) /hpf Urine Bacteria (None) /hpf Hyaline Casts (0-2) /lpf Urine Mucus (None) /hpf Urine HCG, Qual Not Detected (Not Detectd) Disposition Clinical Impression: Pelvic pain, Ovarian cyst Disposition: HOME SELF-CARE Condition: Stable Instructions (If sedation given, give patient instructions): Ruptured Ovarian Cyst (ED) Additional Instructions: Please follow-up with one of the recommended PLANT QUALITY MANAGER's. Return for any new or worsening symptoms Is patient prescribed a controlled substance at d/c from ED?: No Referrals: None,Stated [Primary Care Provider] - 1-2 days Penny Simon DO [Doctor of Osteopathic Medicine] - 1-2 days May Campbell DO [REFERRING] - 1-2 days Adelfo Mattson DO [REFERRING] - 1-2 days Angelo Torres DO [REFERRING] - 1-2 days Time of Disposition: 22:53
[2023-07-14 23:19] VITALS: BP 101/77; PULSE 68; RESP 18
== END 2023-07-14 23:10 | disposition home or self-care (01) ==
LOC: EC 19:30
DX: N83.202 Unspecified ovarian cyst, left side (principal); Z88.8 Allergy status to other drugs, medicaments and biological substances
CPT/HCPCS: 36415; 80053; 85025; 81001; 81025; 93975; 76830; 99285; 96374; 96375 ×2; 96361 ×2; J2405; J1170; J1885

== ENCOUNTER 2023-09-04 15:52 | Emergency (ER) | payer OTHER ==
[2023-09-04 16:03] VITALS: RESP 16; TEMP 99.3
--- NOTE | 2023-09-04 16:13 | ED ---
Female Urogenital HPI - General Chief complaint: OB/Uterine Contractions Stated complaint: Cramping-8 weeks preg Time Seen by Provider: 09/04/23 16:11 Source: patient, RN notes reviewed Mode of arrival: ambulatory Limitations: no limitations - History of Present Illness Initial comments: 23 year old female presenting to the ER with a chief complaint of right sided abdominal cramping. Past medical history significant for ovarian cysts. She reports she began experiencing right sided abdominal cramping about 1 week ago she reports it has been persistent since as an achy pain. She reports that she took a test on and it was positive. She states 2 days after she went to the bathroom and noticed "tissue" when wiping. She states that this is somewhat normal when a cyst ruptures. She reports her last cyst rupture was in June 2023. She denies any vaginal bleeding at that time or since. Last menstrual cycle was approximately 08/14/23. Patient denies any fevers, chills, nausea, vomiting, constipation/diarrhea, urinary complaints or peripheral edema. - Related Data Home Medications Medication Instructions Recorded Confirmed medroxyPROGESTERone [Depo-Provera] 150 mg IM ONCE 08/10/22 08/10/22 Previous Rx's Medication Instructions Recorded Nitrofurantoin Monohyd/M-Cryst 100 mg PO Q12HR 5 Days #10 cap 08/10/22 [Macrobid] Amoxicillin 875 mg PO Q12HR 10 Days #20 tablet 10/17/22 Fluconazole [Diflucan] 150 mg PO ONCE #1 tab 06/14/23 Nitrofurantoin Monohyd/M-Cryst 100 mg PO Q12HR #10 cap 06/14/23 [Macrobid] metroNIDAZOLE [Flagyl] 500 mg PO BID #14 tab 06/14/23 Allergies Allergy/AdvReac Type Severity Reaction Status Date / Time cantaloupe AdvReac Nausea & Verified 09/04/23 16:04 Vomiting & Diarrhea Sesame Seed AdvReac Nausea & Verified 09/04/23 16:04 Vomiting & Diarrhea Review of Systems ROS Statement: Those systems with pertinent positive or pertinent negative responses have been documented in the HPI. ROS Other: All systems not noted in ROS Statement are negative. Past Medical History Past Medical History: No Reported History Additional Past Medical History / Comment(s): MTHFR blood mutation, ovarian cyst rupture 2017, endometriosis History of Any Multi-Drug Resistant Organisms: None Reported Past Surgical History: Adenoidectomy, Ear Surgery Past Psychological History: Anxiety, Depression Smoking Status: Never smoker Past Alcohol Use History: None Reported Past Drug Use History: None Reported General Exam - General Exam Comments Initial Comments: Visual Physical Exam Vital signs reviewed General: Well-appearing, nontoxic, no acute distress. Head: Normocephalic, atraumatic Eyes: PERRLA, EOMI ENT: Airway patent Chest: Nonlabored breathing Skin: No visual rash, normal skin tone Neuro: Alert and oriented 3 Musculoskeletal: No gross abnormalities Limitations: no limitations General appearance: alert, in no apparent distress Respiratory exam: Present: normal lung sounds bilaterally. Absent: respiratory distress, wheezes, rales, rhonchi, stridor Cardiovascular Exam: Present: regular rate, normal rhythm, normal heart sounds. Absent: systolic murmur, diastolic murmur, rubs, gallop, clicks GI/Abdominal exam: Present: soft, tenderness (mild RLQ), normal bowel sounds. Absent: distended, guarding, rebound, rigid Skin exam: Present: warm, dry, intact, normal color. Absent: rash Course Vital Signs 09/04/23 09/04/23 16:00 20:19 Temperature 99.3 F Pulse Rate 97 95 Respiratory 16 16 Rate Blood Pressure 139/99 132/63 O2 Sat by Pulse 96 98 Oximetry Medical Decision Making - Medical Decision Making I performed the quick note portion of this chart. Electronically signed by Catherine Sotomayor PA-C Was pt. sent in by a medical professional or institution ([facility], GARAGE MANAGER, urgent care, hospital, or senior living...) When possible be specific @ -No Did you speak to anyone other than the patient for history (EMS, parent, family, police, friend...)? What history was obtained from this source @ -No Did you review nursing and triage notes (agree or disagree)? Why? @ -I reviewed and agree with nursing and triage notes Were old charts reviewed (outside hosp., previous admission, EMS record, old EKG, old radiological studies, urgent care reports/EKG's, senior living records)? Report findings @ -No old charts were reviewed Differential Diagnosis (chest pain, altered mental status, abdominal pain women, abdominal pain men, vaginal bleeding, weakness, fever, dyspnea, syncope, headache, dizziness, GI bleed, back pain, seizure, CVA, palpatations, mental health, musculoskeletal)? @ -Differential Abdominal Pain Women: Appendicitis, Cholecystitis, diverticulosis, ischemic bowel, pancreatitis, hepatitis, UTI, gastroenteritis, AAA, incarcerated hernia, bowel obstruction, constipation, inflammatory bowel, hepatitis, peptic ulcer disease, splenic infarction, perforated viscus, vulvitis, ovarian torsion, PID, kidney stone, placenta abruption, this is not meant to be an all-inclusive list EKG interpreted by me (3pts min.). @ -None X-rays interpreted by me (1pt min.). @ -None done CT interpreted by me (1pt min.). @ -None done U/S interpreted by me (1pt. min.). @ -Transvaginal ultrasound negative for IUP. Endometrium within normal limits. Appropriate arterial and venous waveforms to bilateral ovaries. What testing was considered but not performed or refused? (CT, X-rays, U/S, labs)? Why? @ -None What meds were considered but not given or refused? Why? @ -None Did you discuss the management of the patient with other professionals (professionals i.e. , PA, GARAGE MANAGER, lab, RT, psych nurse, social worker clinical, senior nuclear medicine technologist, teacher, peace officer, geriatric case manager)? Give summary @ -No Was smoking cessation discussed for >3mins.? @ -No Was critical care preformed (if so, how long)? @ -No Were there social determinants of health that impacted care today? How? (Homelessness, low income, unemployed, alcoholism, drug addiction, transportation, low edu. Level, literacy, decrease access to med. care, [facility], rehab)? @ -No Was there de-escalation of care discussed even if they declined (Discuss DNR or withdrawal of care, Hospice)? DNR status @ -No What co-morbidities impacted this encounter? (DM, HTN, Smoking, COPD, CAD, Cancer, CVA, ARF, Chemo, Hep., AIDS, mental health diagnosis, sleep apnea, morbid obesity)? @ -Ovarian cysts Was patient admitted / discharged? Hospital course, mention meds given and route, prescriptions, significant lab abnormalities, going to OR and other pertinent info. @ -Discharge. 23 year old female presenting to the ER with a chief complaint of RLQ abdominal pain. History and physical exam completed. Vitals stable. Patient no signs of acute distress and nontoxic-appearing. Mild focal abdominal tenderness in the right lower quadrant. Normal bowel sounds. Laboratory st udies obtained unimpressive. Serum hCG less than 2.4. Urine without evidence of infection. Transvaginal ultrasound completed to rule out ovarian torsion. Ultrasound negative for acute process. Normal arterial and venous blood flow to bilateral ovaries. Patient received 1 L IV fluids for symptom control in the ER. Upon reevaluation, patient resting comfortably in exam room in no signs of acute distress. Results discussed with patient, all questions answered. Patient reporting improvement of symptoms and would like to be discharged. Patient stable for discharge. Return parameters discussed. Patient discharged in stable condition with follow-up with [employer] and PCP. Patient verbally expressed understanding and agreement with care plan. Case discussed with ED attending, Dr. Mcnamara. Undiagnosed new problem with uncertain prognosis? @ -No Drug Therapy requiring intensive monitoring for toxicity (Heparin, Nitro, Insulin, Cardizem)? @ -No Were any procedures done? @ -No Diagnosis/symptom? @ -Abdominal pain Acute, or Chronic, or Acute on Chronic? @ -Acute Uncomplicated (without systemic symptoms) or Complicated (systemic symptoms)? @ -Uncomplicated Side effects of treatment? @ -No Exacerbation, Progression, or Severe Exacerbation? @ -No Poses a threat to life or bodily function? How? (Chest pain, USA, SC, pneumonia, PE, COPD, DKA, ARF, appy, cholecystitis, CVA, Diverticulitis, Homicidal, Suicidal, threat to staff... and all critical care pts) @ -No - Lab Data Result diagrams: 09/04/23 16:50 09/04/23 16:50 Lab Results 09/04/23 09/04/23 09/04/23 Range/Units 16:50 16:50 16:50 WBC 9.5 (3.8-10.6) k/uL RBC 5.27 (3.80-5.40) m/uL Hgb 15.2 (11.4-16.0) gm/dL Hct 47.9 H (34.0-46.0) % MCV 90.9 (80.0-100.0) fL MCH 28.8 (25.0-35.0) pg MCHC 31.7 (31.0-37.0) g/dL RDW 12.5 (11.5-15.5) % Plt Count 269 (150-450) k/uL MPV 8.4 Neutrophils % 74 % Lymphocytes % 18 % Monocytes % 5 % Eosinophils % 1 % Basophils % 1 % Neutrophils # 7.1 (1.3-7.7) k/uL Lymphocytes # 1.7 (1.0-4.8) k/uL Monocytes # 0.5 (0-1.0) k/uL Eosinophils # 0.1 (0-0.7) k/uL Basophils # 0.1 (0-0.2) k/uL Sodium (137-145) mmol/L Potassium (3.5-5.1) mmol/L Chloride (98-107) mmol/L Carbon Dioxide (22-30) mmol/L Anion Gap mmol/L BUN (7-17) mg/dL Creatinine (0.52-1.04) mg/dL Est GFR (CKD-EPI)AfAm (>60 ml/min/1.73 sqM) Est GFR (CKD-EPI)NonAf (>60 ml/min/1.73 sqM) Glucose (74-99) mg/dL Calcium (8.4-10.2) mg/dL Total Bilirubin (0.2-1.3) mg/dL AST (14-36) U/L ALT (4-34) U/L Alkaline Phosphatase (38-126) U/L Total Protein (6.3-8.2) g/dL Albumin (3.5-5.0) g/dL HCG, Quant mIU/mL Urine Color Light Yellow Urine Appearance Clear (Clear) Urine pH 6.0 (5.0-8.0) Ur Specific [place] 1.026 (1.001-1.035) Urine Protein Negative (Negative) Urine Glucose (UA) Negative (Negative) Urine Ketones Negative (Negative) Urine Blood Negative (Negative) Urine Nitrite Negative (Negative) Urine Bilirubin Negative (Negative) Urine Urobilinogen <2.0 (<2.0) mg/dL Ur Leukocyte Esterase Negative (Negative) Urine HCG, Qual Not Detected (Not Detectd) 09/04/23 Range/Units 16:50 WBC (3.8-10.6) k/uL RBC (3.80-5.40) m/uL Hgb (11.4-16.0) gm/dL Hct (34.0-46.0) % MCV (80.0-100.0) fL MCH (25.0-35.0) pg MCHC (31.0-37.0) g/dL RDW (11.5-15.5) % Plt Count (150-450) k/uL MPV Neutrophils % % Lymphocytes % % Monocytes % % Eosinophils % % Basophils % % Neutrophils # (1.3-7.7) k/uL Lymphocytes # (1.0-4.8) k/uL Monocytes # (0-1.0) k/uL Eosinophils # (0-0.7) k/uL Basophils # (0-0.2) k/uL Sodium 138 (137-145) mmol/L Potassium 4.1 (3.5-5.1) mmol/L Chloride 108 H (98-107) mmol/L Carbon Dioxide 22 (22-30) mmol/L Anion Gap 8 mmol/L BUN 11 (7-17) mg/dL Creatinine 0.70 (0.52-1.04) mg/dL Est GFR (CKD-EPI)AfAm >90 (>60 ml/min/1.73 sqM) Est GFR (CKD-EPI)NonAf >90 (>60 ml/min/1.73 sqM) Glucose 83 (74-99) mg/dL Calcium 9.6 (8.4-10.2) mg/dL Total Bilirubin 1.2 (0.2-1.3) mg/dL AST 20 (14-36) U/L ALT 12 (4-34) U/L Alkaline Phosphatase 34 L (38-126) U/L Total Protein 7.3 (6.3-8.2) g/dL Albumin 4.7 (3.5-5.0) g/dL HCG, Quant <2.4 mIU/mL Urine Color Urine Appearance (Clear) Urine pH (5.0-8.0) Ur Specific [place] (1.001-1.035) Urine Protein (Negative) Urine Glucose (UA) (Negative) Urine Ketones (Negative) Urine Blood (Negative) Urine Nitrite (Negative) Urine Bilirubin (Negative) Urine Urobilinogen (<2.0) mg/dL Ur Leukocyte Esterase (Negative) Urine HCG, Qual (Not Detectd) - Radiology Data Radiology results: report reviewed, image reviewed Disposition Clinical Impression: Abdominal pain Disposition: HOME SELF-CARE Condition: Stable Instructions (If sedation given, give patient instructions): Abdominal Pain (ED) Additional Instructions: Please follow-up with PCP in the next 1 to 2 days. Return to the ER for any new or worsening concerns. Is patient prescribed a controlled substance at d/c from ED?: No Referrals: None,Stated [Primary Care Provider] - 1-2 days Katja Bales, [Doctor of Osteopathic Medicine] - 1-2 days Forms: Area PCPs Time of Disposition: 19:56
[2023-09-04 17:09] LABS: Basophils # (A) 0.1 k/uL (0-0.2); Basophils % (A) 1 %; Eosinophils # (A) 0.1 k/uL (0-0.7); Eosinophils % (A) 1 %; HCT 47.9 % (34.0-46.0); HGB 15.2 gm/dL (11.4-16.0); Lymphocytes # (A) 1.7 k/uL (1.0-4.8); Lymphocytes % (A) 18 %; MCH 28.8 pg (25.0-35.0); MCHC 31.7 g/dL (31.0-37.0); MCV 90.9 fL (80.0-100.0); Mean Platelet Volume 8.4; Monocytes # (A) 0.5 k/uL (0-1.0); Monocytes % (A) 5 %; Neutrophils # (A) 7.1 k/uL (1.3-7.7); Neutrophils % (A) 74 %; Platelet Count 269 k/uL (150-450); RBC 5.27 m/uL (3.80-5.40); RDW 12.5 % (11.5-15.5); WBC 9.5 k/uL (3.8-10.6)
[2023-09-04] MEDS: SODIUM CHLORIDE 0.9% 1,000 ML IV STA (17:17)
[2023-09-04 17:26] LABS: ALT 12 U/L (4-34); AST 20 U/L (14-36); African American GFR (CKD) >90 (>60 ml/min/1.73 sqM); Albumin 4.7 g/dL (3.5-5.0); Alkaline Phosphatase 34 U/L (38-126); Anion Gap 8 mmol/L; Blood Urea Nitrogen 11 mg/dL (7-17); Calcium 9.6 mg/dL (8.4-10.2); Carbon Dioxide 22 mmol/L (22-30); Chloride 108 mmol/L (98-107); Glucose 83 mg/dL (74-99); Non-African American GFR(CKD) >90 (>60 ml/min/1.73 sqM); Potassium 4.1 mmol/L (3.5-5.1); Sodium 138 mmol/L (137-145); Total Bilirubin 1.2 mg/dL (0.2-1.3); Total Protein 7.3 g/dL (6.3-8.2)
[2023-09-04 17:42] LABS: HCG,Quantitative Serum <2.4 mIU/mL
[2023-09-04 19:15] LABS: Appearance,Urine Clear (Clear); Bilirubin,Urine Negative (Negative); Blood,Urine Negative (Negative); Color,Urine Light Yellow; Glucose,Urine (UA) Negative (Negative); Ketones,Urine Negative (Negative); Leukocyte Esterase,Urine Negative (Negative); Nitrite,Urine Negative (Negative); Protein,Urine Negative (Negative); Specific Gravity,Urine 1.026 (1.001-1.035); Urobilinogen,Urine <2.0 mg/dL (<2.0)
--- NOTE | 2023-09-04 19:27 | US ---
EXAMINATION TYPE: US transvaginal DATE OF EXAM: 09/04/2023 COMPARISON: 07/14/2023 CLINICAL INDICATION: Female, 23 years old with history of RLQ pain; Patient states she had a positive preg test 2 weeks ago. Patient had cramping and bleeding and stated she saw tissue come out. Patient retook a test and is now negative. States that she still has cramping, worse on the right side. States she has a history of cysts rupturing. TECHNIQUE: Transvaginal (TV). Transvaginal sonographic images were medically necessary to better as sess the following anatomy: Uterus Date of LMP: Unknown EXAM MEASUREMENTS: Uterus: 7.4 x 4.3 x 5.0 cm Endometrial Stripe: 0.8 cm Right Ovary: 3.9 x 3.3 x 2.2 cm Left Ovary: 3.0 x 3.2 x 1.3 cm 1. Uterus: Anteverted WNL as best visualized 2. Endometrium: 0.8cm, hyperechoic, no evidence for retained products of conception. 3. Right Ovary: WNL as best seen, follicular changes noted 4. Left Ovary: WNL as best seen, follicular changes noted Spectral, color and waveform doppler imaging shows good arterial and venous flow within the ovaries ; there is no evidence for ovarian torsion. 5. Bilateral Adnexa: Obscured by overlying bowel gas 6. Posterior cul-de-sac: wnl IMPRESSION: 1. No evidence for intrauterine gestation. Correlate with beta hCG. Given patient history findings c ould represent spontaneous in setting of previous positive beta hCG. 2. Endometrium within normal limits for thickness. No evidence for hypervascular retained products o f conception. 3. Appropriate arterial and venous spectral waveforms to the ovaries.
[2023-09-04 20:21] VITALS: BP 132/63; PULSE 95
== END 2023-09-04 20:20 | disposition home or self-care (01) ==
LOC: EC 15:52
DX: O26.891 Other specified pregnancy related conditions, first trimester (principal); R10.31 Right lower quadrant pain; Z88.8 Allergy status to other drugs, medicaments and biological substances; Z3A.01 Less than 8 weeks gestation of pregnancy
CPT/HCPCS: 36415; 76830; 80053; 81003; 81025; 84702; 85025; 93975; 96360; 99284

== ENCOUNTER 2024-03-13 14:47 | Emergency (ER) | payer OTHER ==
--- NOTE | 2024-03-13 15:25 | ED ---
Abdominal Pain HPI - General Source: patient Mode of arrival: wheelchair Limitations: no limitations - History of Present Illness MD Complaint: abdominal pain <Nataliya Grady - Last Filed: 03/13/24 15:22> <Margret Rico - Last Filed: 03/13/24 19:34> <Claudia Sotomayor - Last Filed: 03/14/24 02:53> - General Chief Complaint: Abdominal Pain Stated Complaint: ABD PAIN Time Seen by Provider: 03/13/24 15:20 - History of Present Illness Initial Comments: Quick Note: This is a 23-year-old female who presents to the emergency department for abdominal pain, nausea, and vomiting. States that it started around 8 AM. Pain is across the whole abdomen and into her chest. Patient is hysterical on initial examination and not answering many questions. (Nataliya Grady) 23 year old female presenting to the ER for abdominal pain x 2 days with associated nausea, vomiting, and diarrhea. States the pain is diffuse. She believes it is from quitting marijuana as she has had this before with similar symptoms. Denies urinary symptoms or . Patient is hysterical on initial examination and states she cannot answer any more questions until she has pain medications. (Margret Rico) - Related Data Home Medications Medication Instructions Recorded Confirmed medroxyPROGESTERone [Depo-Provera] 150 mg IM ONCE 08/10/22 08/10/22 Previous Rx's Medication Instructions Recorded Nitrofurantoin Monohyd/M-Cryst 100 mg PO Q12HR 5 Days #10 cap 08/10/22 [Macrobid] Amoxicillin 875 mg PO Q12HR 10 Days #20 tablet 10/17/22 Fluconazole [Diflucan] 150 mg PO ONCE #1 tab 06/14/23 Nitrofurantoin Monohyd/M-Cryst 100 mg PO Q12HR #10 cap 06/14/23 [Macrobid] metroNIDAZOLE [Flagyl] 500 mg PO BID #14 tab 06/14/23 Ondansetron Odt [Zofran Odt] 4 mg PO Q8HR PRN #10 tab 03/13/24 Allergies Allergy/AdvReac Type Severity Reaction Status Date / Time cantaloupe AdvReac Nausea & Verified 03/13/24 15:17 Vomiting & Diarrhea Sesame Seed AdvReac Nausea & Verified 03/13/24 15:17 Vomiting & Diarrhea Review of Systems ROS Other: All systems not noted in ROS Statement are negative. <Nataliya Grady - Last Filed: 03/13/24 15:22> ROS Other: All systems not noted in ROS Statement are negative. <Margret Rico - Last Filed: 03/13/24 19:34> ROS Other: All systems not noted in ROS Statement are negative. <Claudia Sotomayor - Last Filed: 03/14/24 02:53> ROS Statement: Those systems with pertinent positive or pertinent negative responses have been documented in the HPI. Past Medical History Past Medical History: No Reported History Additional Past Medical History / Comment(s): MTHFR blood mutation, ovarian cyst rupture 2018, endometriosis History of Any Multi-Drug Resistant Organisms: None Reported Past Surgical History: Adenoidectomy, Ear Surgery Past Psychological History: Anxiety, Depression Smoking Status: Vaper Past Alcohol Use History: Rare Past Drug Use History: Marijuana <Nataliya Grady - Last Filed: 03/13/24 15:22> General Exam Limitations: no limitations <Nataliya Grady - Last Filed: 03/13/24 15:22> General appearance: alert, other (Hysterical during initial examination) Head exam: Present: atraumatic, normocephalic, normal inspection Eye exam: Present: normal appearance, PERRL, EOMI. Absent: scleral icterus, conjunctival injection, periorbital swelling ENT exam: Present: normal exam, mucous membranes moist Respiratory exam: Present: normal lung sounds bilaterally. Absent: respiratory distress, wheezes, rales, rhonchi, stridor Cardiovascular Exam: Present: regular rate, normal rhythm, normal heart sounds. Absent: systolic murmur, diastolic murmur, rubs, gallop, clicks GI/Abdominal exam: Present: soft, normal bowel sounds. Absent: distended, tenderness, guarding, rebound, rigid Back exam: Absent: CVA tenderness (R), CVA tenderness (L) Neurological exam: Present: alert, oriented X3 Psychiatric exam: Present: normal affect, normal mood Skin exam: Present: warm, dry, intact, normal color. Absent: rash <Margret Rico - Last Filed: 03/13/24 19:34> - General Exam Comments Initial Comments: Visual Physical Exam Vital signs reviewed General: In distress Head: Normocephalic, atraumatic Eyes: PERRLA, EOMI ENT: Airway patent Chest: Nonlabored breathing Skin: No visual rash, normal skin tone Neuro: Alert and oriented 3 Musculoskeletal: No gross abnormalities (Nataliya Grady) Course Vital Signs 03/13/24 03/13/24 03/13/24 15:17 18:08 21:27 Temperature 97.3 F L 97.9 F 98.0 F Pulse Rate 91 88 73 Respiratory 22 18 18 Rate Blood Pressure 134/92 115/80 129/83 O2 Sat by Pulse 100 100 99 Oximetry Medical Decision Making <Nataliya Grady - Last Filed: 03/13/24 15:22> - Lab Data Result diagrams: 03/13/24 15:41 03/13/24 15:41 <Margret Rico - Last Filed: 03/13/24 19:34> - Lab Data Result diagrams: 03/13/24 15:41 03/13/24 15:41 - Radiology Data Radiology results: report reviewed, image reviewed <Claudia Sotomayor - Last Filed: 03/14/24 02:53> - Medical Decision Making I performed the QuickNote portion of this chart. Signed Nataliya Grady PA-C. (Nataliya Grady) Was pt. sent in by a medical professional or institution ([facility], CHANGE CONTROL SPECIALIST, urgent care, hospital, or shelter...) When possible be specific @ -No Did you speak to anyone other than the patient for history (EMS, parent, family, police, friend...)? What history was obtained from this source @ -No Did you review nursing and triage notes (agree or disagree)? Why? @ -I reviewed and agree with nursing and triage notes Were old charts reviewed (outside hosp., previous admission, EMS record, old EKG, old radiological studies, urgent care reports/EKG's, shelter records)? Report findings @ -No old charts were reviewed Differential Diagnosis (chest pain, altered mental status, abdominal pain women, abdominal pain men, vaginal bleeding, weakness, fever, dyspnea, syncope, headache, dizziness, GI bleed, back pain, seizure, CVA, palpatations, mental health, musculoskeletal)? @ -Differential Abdominal Pain Women: Appendicitis, Cholecystitis, diverticulosis, ischemic bowel, pancreatitis, hepatitis, UTI, gastroenteritis, AAA, incarcerated hernia, bowel obstruction, constipation, inflammatory bowel, hepatitis, peptic ulcer disease, splenic infarction, perforated viscus, vulvitis, ovarian torsion, PID, kidney stone, placenta abruption, this is not meant to be an all-inclusive list EKG interpreted by me (3pts min.). @ -None X-rays interpreted by me (1pt min.). @ -None done CT interpreted by me (1pt min.). @ -CT abdomen pelvis pending upon signout U/S interpreted by me (1pt. min.). @ -Pelvic ultrasound unremarkable for acute process What testing was considered but not performed or refused? (CT, X-rays, U/S, labs)? Why? @ -None What meds were considered but not given or refused? Why? @ -None Did you discuss the management of the patient with other professionals (professionals i.e. , PA, CHANGE CONTROL SPECIALIST, lab, RT, psych nurse, social science analyst, flakeboard line tender, te acher, aoc plans intelligence officer chief, case finishing machine adjuster)? Give summary @ -No Was smoking cessation discussed for >3mins.? @ -No Was critical care preformed (if so, how long)? @ -No Were there social determinants of health that impacted care today? How? (Homelessness, low income, unemployed, alcoholism, drug addiction, transportation, low edu. Level, literacy, decrease access to med. care, assisted, rehab)? @ -No Was there de-escalation of care discussed even if they declined (Discuss DNR or withdrawal of care, Hospice)? DNR status @ -No What co-morbidities impacted this encounter? (DM, HTN, Smoking, COPD, CAD, Cancer, CVA, ARF, Chemo, Hep., AIDS, mental health diagnosis, sleep apnea, morbid obesity)? @ -None Was patient admitted / discharged? Hospital course, mention meds given and route, prescriptions, significant lab abnormalities, going to OR and other pertinent info. @ -This is a 23-year-old female presenting for abdominal pain with nausea, vomiting, and diarrhea x 2 days. Vital signs are within acceptable limits. Abdomen is soft and nontender to palpation. Patient is provided with IV fluids, antiemetics, and analgesics. Lab work remarkable for leukocytosis of 13, lactic acid 4.1, and CO2 of 11. Urinalysis remarkable for 3+ ketones. Pelvic ultrasound unremarkable. Case signed out to Claudia Sotomayor PA-C pending CT abdomen pelvis. (Margret Rico) Was patient admitted / discharged? Hospital course, mention meds given and route, prescriptions, significant lab abnormalities, going to OR and other pertinent info. @ -Patient signed out to me from Margret Rico PA-C pending CT results. This is a 23-year-old female presented to the ER for abdominal pain with nausea and vomiting for the past [address] abdomen pelvis negative for suspicious abnormality. Upon reevaluation, patient reporting continued abdominal pain along with nausea. Patient given Haldol and Benadryl, with improvement of symptoms. Upon reevaluation, patient is feeling better and ready for discharge. Patient discharged with Zofran. Strict return parameters discussed. Patient discharged in stable condition with follow-up to PCP. Patient verbally expressed understanding and agreement with care plan. Case discussed with ED attending, Dr. Martinez. Undiagnosed new problem with uncertain prognosis? @ -No Drug Therapy requiring intensive monitoring for toxicity (Heparin, Nitro, Insulin, Cardizem)? @ -No Were any procedures done? @ -No Diagnosis/symptom? @ -Nausea and vomiting/abdominal pain Acute, or Chronic, or Acute on Chronic? @ -Acute Uncomplicated (without systemic symptoms) or Complicated (systemic symptoms)? @ -Uncomplicated Side effects of treatment? @ -No Exacerbation, Progression, or Severe Exacerbation? @ -No Poses a threat to life or bodily function? How? (Chest pain, [place], [place], pneumonia, PE, COPD, DKA, ARF, appy, cholecystitis, CVA, Diverticulitis, Homicidal, Suicidal, threat to staff... and all critical care pts) @ -No (Claudia Sotomayor) - Lab Data Lab Results 03/13/24 03/13/24 03/13/24 Range/Units 15:41 15:41 15:41 WBC 13.1 H (3.8-10.6) k/uL RBC 5.39 (3.80-5.40) m/uL Hgb 16.0 (11.4-16.0) gm/dL Hct 49.4 H (34.0-46.0) % MCV 91.6 (80.0-100.0) fL MCH 29.6 (25.0-35.0) pg MCHC 32.3 (31.0-37.0) g/dL RDW 11.9 (11.5-15.5) % Plt Count 290 (150-450) k/uL MPV 7.8 Neutrophils % 85 % Lymphocytes % 10 % Monocytes % 3 % Eosinophils % 0 % Basophils % 1 % Neutrophils # 11.2 H (1.3-7.7) k/uL Lymphocytes # 1.4 (1.0-4.8) k/uL Monocytes # 0.4 (0-1.0) k/uL Eosinophils # 0.1 (0-0.7) k/uL Basophils # 0.1 (0-0.2) k/uL Sodium (137-145) mmol/L Potassium (3.5-5.1) mmol/L Chloride (98-107) mmol/L Carbon Dioxide (22-30) mmol/L Anion Gap mmol/L BUN (7-17) mg/dL Creatinine (0.52-1.04) mg/dL Est GFR (CKD-EPI)AfAm (>60 ml/min/1.73 sqM) Est GFR (CKD-EPI)NonAf (>60 ml/min/1.73 sqM) Glucose (74-99) mg/dL Lactic Ac Sepsis Rflx Plasma Lactic Acid Crist[place] (0.7-2.0) mmol/L Calcium (8.4-10.2) mg/dL Total Bilirubin (0.2-1.3) mg/dL AST (14-36) U/L ALT (4-34) U/L Alkaline Phosphatase (38-126) U/L Total Protein (6.3-8.2) g/dL Albumin (3.5-5.0) g/dL Amylase (30-110) U/L Lipase (23-300) U/L Urine Color Yellow Urine Appearance Clear (Clear) Urine pH 6.0 (5.0-8.0) Ur Specific [place] 1.030 (1.001-1.035) Urine Protein Trace H (Negative) Urine Glucose (UA) Negative (Negative) Urine Ketones 3+ H (Negative) Urine Blood Negative (Negative) Urine Nitrite Negative (Negative) Urine Bilirubin Negative (Negative) Urine Urobilinogen <2.0 (<2.0) mg/dL Ur Leukocyte Esterase Negative (Negative) Urine HCG, Qual Not Detected (Not Detectd) Urine Opiates Screen Detected H (NotDetected) Ur Oxycodone Screen Not Detected (NotDetected) Urine Methadone Screen Not Detected (NotDetected) Ur Barbiturates Screen Not Detected (NotDetected) U Tricyclic Antidepress Not Detected (NotDetected) Ur Phencyclidine Scrn Not Detected (NotDetected) Ur Amphetamines Screen Not Detected (NotDetected) U Methamphetamines Scrn Not Detected (NotDetected) U Benzodiazepines Scrn Not Detected (NotDetected) Urine Cocaine Screen Not Detected (NotDetected) U Marijuana (THC) Screen Detected H (NotDetected) 03/13/24 03/13/24 03/13/24 Range/Units 15:41 15:41 16:28 WBC (3.8-10.6) k/uL RBC (3.80-5.40) m/uL Hgb (11.4-16.0) gm/dL Hct (34.0-46.0) % MCV (80.0-100.0) fL MCH (25.0-35.0) pg MCHC (31.0-37.0) g/dL RDW (11.5-15.5) % Plt Count (150-450) k/uL MPV Neutrophils % % Lymphocytes % % Monocytes % % Eosinophils % % Basophils % % Neutrophils # (1.3-7.7) k/uL Lymphocytes # (1.0-4.8) k/uL Monocytes # (0-1.0) k/uL Eosinophils # (0-0.7) k/uL Basophils # (0-0.2) k/uL Sodium 139 (137-145) mmol/L Potassium 4.1 (3.5-5.1) mmol/L Chloride 111 H (98-107) mmol/L Carbon Dioxide 11 L (22-30) mmol/L Anion Gap 17 mmol/L BUN 14 (7-17) mg/dL Creatinine 0.79 (0.52-1.04) mg/dL Est GFR (CKD-EPI)AfAm >90 (>60 ml/min/1.73 sqM) Est GFR (CKD-EPI)NonAf >90 (>60 ml/min/1.73 sqM) Glucose 123 H (74-99) mg/dL Lactic Ac Sepsis Rflx Y Plasma Lactic Acid Crist[place] 4.1 H* (0.7-2.0) mmol/L Calcium 10.2 (8.4-10.2) mg/dL Total Bilirubin 1.3 (0.2-1.3) mg/dL AST 35 (14-36) U/L ALT 21 (4-34) U/L Alkaline Phosphatase 62 (38-126) U/L Total Protein 8.7 H (6.3-8.2) g/dL Albumin 5.2 H (3.5-5.0) g/dL Amylase 75 (30-110) U/L Lipase 119 (23-300) U/L Urine Color Urine Appearance (Clear) Urine pH (5.0-8.0) Ur Specific [place] (1.001-1.035) Urine Protein (Negative) Urine Glucose (UA) (Negative) Urine Ketones (Negative) Urine Blood (Negative) Urine Nitrite (Negative) Urine Bilirubin (Negative) Urine Urobilinogen (<2.0) mg/dL Ur Leukocyte Esterase (Negative) Urine HCG, Qual (Not Detectd) Urine Opiates Screen (NotDetected) Ur Oxycodone Screen (NotDetected) Urine Methadone Screen (NotDetected) Ur Barbiturates Screen (NotDetected) U Tricyclic Antidepress (NotDetected) Ur Phencyclidine Scrn (NotDetected) Ur Amphetamines Screen (NotDetected) U Methamphetamines Scrn (NotDetected) U Benzodiazepines Scrn (NotDetected) Urine Cocaine Screen (NotDetected) U Marijuana (THC) Screen (NotDetected) 03/13/24 Range/Units 18:47 WBC (3.8-10.6) k/uL RBC (3.80-5.40) m/uL Hgb (11.4-16.0) gm/dL Hct (34.0-46.0) % MCV (80.0-100.0) fL MCH (25.0-35.0) pg MCHC (31.0-37.0) g/dL RDW (11.5-15.5) % Plt Count (150-450) k/uL MPV Neutrophils % % Lymphocytes % % Monocytes % % Eosinophils % % Basophils % % Neutrophils # (1.3-7.7) k/uL Lymphocytes # (1.0-4.8) k/uL Monocytes # (0-1.0) k/uL Eosinophils # (0-0.7) k/uL Basophils # (0-0.2) k/uL Sodium (137-145) mmol/L Potassium (3.5-5.1) mmol/L Chloride (98-107) mmol/L Carbon Dioxide (22-30) mmol/L Anion Gap mmol/L BUN (7-17) mg/dL Creatinine (0.52-1.04) mg/dL Est GFR (CKD-EPI)AfAm (>60 ml/min/1.73 sqM) Est GFR (CKD-EPI)NonAf (>60 ml/min/1.73 sqM) Glucose (74-99) mg/dL Lactic Ac Sepsis Rflx Plasma Lactic Acid [place] 1.9 (0.7-2.0) mmol/L Calcium (8.4-10.2) mg/dL Total Bilirubin (0.2-1.3) mg/dL AST (14-36) U/L ALT (4-34) U/L Alkaline Phosphatase (38-126) U/L Total Protein (6.3-8.2) g/dL Albumin (3.5-5.0) g/dL Amylase (30-110) U/L Lipase (23-300) U/L Urine Color Urine Appearance (Clear) Urine pH (5.0-8.0) Ur Specific [place] (1.001-1.035) Urine Protein (Negative) Urine Glucose (UA) (Negative) Urine Ketones (Negative) Urine Blood (Negative) Urine Nitrite (Negative) Urine Bilirubin (Negative) Urine Urobilinogen (<2.0) mg/dL Ur Leukocyte Esterase (Negative) Urine HCG, Qual (Not Detectd) Urine Opiates Screen (NotDetected) Ur Oxycodone Screen (NotDetected) Urine Methadone Screen (NotDetected) Ur Barbiturates Screen (NotDetected) U Tricyclic Antidepress (NotDetected) Ur Phencyclidine Scrn (NotDetected) Ur Amphetamines Screen (NotDetected) U Methamphetamines Scrn (NotDetected) U Benzodiazepines Scrn (NotDetected) Urine Cocaine Screen (NotDetected) U Marijuana (THC) Screen (NotDetected) Disposition <Nataliya Grady - Last Filed: 03/13/24 15:22> <Margret Rico - Last Filed: 03/13/24 19:34> Is patient prescribed a controlled substance at d/c from ED?: No Time of Disposition: 20:59 <Claudia Sotomayor - Last Filed: 03/14/24 02:53> Clinical Impression: Nausea and vomiting, Abdominal pain Disposition: HOME SELF-CARE Condition: Stable Instructions (If sedation given, give patient instructions): Acute Nausea and Vomiting (DC) Additional Instructions: Follow-up with PCP. I strongly recommend stopping smoking. Return to the ER for any new or worsening concerns. Prescriptions: Ondansetron Odt [Zofran Odt] 4 mg PO Q8HR PRN #10 tab PRN Reason: Nausea Referrals: [facility] [NON-STAFF] - 1-2 days [facility] [NON-STAFF] - 1-2 days None,Stated [Primary Care Provider] - 1-2 days Forms: Area PCPs
[2024-03-13] MEDS: ONDANSETRON 4 MG/2 ML VIAL IVP STA ×2 (15:44→17:37)
[2024-03-13] MEDS: SODIUM CHLORIDE 0.9% 1,000 ML IV STA ×2 (15:45→17:20)
[2024-03-13 16:08] LABS: Basophils # (A) 0.1 k/uL (0-0.2); Basophils % (A) 1 %; Eosinophils # (A) 0.1 k/uL (0-0.7); Eosinophils % (A) 0 %; HCT 49.4 % (34.0-46.0); Lymphocytes # (A) 1.4 k/uL (1.0-4.8); Lymphocytes % (A) 10 %; MCH 29.6 pg (25.0-35.0); MCHC 32.3 g/dL (31.0-37.0); MCV 91.6 fL (80.0-100.0); Mean Platelet Volume 7.8; Monocytes # (A) 0.4 k/uL (0-1.0); Monocytes % (A) 3 %; Neutrophils # (A) 11.2 k/uL (1.3-7.7); Neutrophils % (A) 85 %; Platelet Count 290 k/uL (150-450); RBC 5.39 m/uL (3.80-5.40); RDW 11.9 % (11.5-15.5); WBC 13.1 k/uL (3.8-10.6)
[2024-03-13 16:17] LABS: ALT 21 U/L (4-34); African American GFR (CKD) >90 (>60 ml/min/1.73 sqM); Amylase 75 U/L (30-110); Anion Gap 17 mmol/L; Blood Urea Nitrogen 14 mg/dL (7-17); Calcium 10.2 mg/dL (8.4-10.2); Carbon Dioxide 11 mmol/L (22-30); Chloride 111 mmol/L (98-107); Glucose 123 mg/dL (74-99); Lipase 119 U/L (23-300); Non-African American GFR(CKD) >90 (>60 ml/min/1.73 sqM); Sodium 139 mmol/L (137-145); Total Bilirubin 1.3 mg/dL (0.2-1.3)
[2024-03-13 16:19] LABS: AST 35 U/L (14-36); Albumin 5.2 g/dL (3.5-5.0); Alkaline Phosphatase 62 U/L (38-126); Potassium 4.1 mmol/L (3.5-5.1); Total Protein 8.7 g/dL (6.3-8.2)
[2024-03-13] MEDS: KETOROLAC 15 MG/ML 1 ML VIAL IVP STA (16:25)
[2024-03-13] MEDS: HYDROmorphone 1 MG/ML 1 ML SYRINGE IVP STA (17:20)
[2024-03-13 17:56] LABS: Appearance,Urine Clear (Clear); Bilirubin,Urine Negative (Negative); Blood,Urine Negative (Negative); Color,Urine Yellow; Glucose,Urine (UA) Negative (Negative); Ketones,Urine 3+ (Negative); Leukocyte Esterase,Urine Negative (Negative); Nitrite,Urine Negative (Negative); Protein,Urine Trace (Negative); Urobilinogen,Urine <2.0 mg/dL (<2.0)
[2024-03-13 18:09] VITALS: RESP 18
[2024-03-13 18:12] LABS: Amphetamine Screen,Urine Not Detected (NotDetected); Barbiturate Screen,Urine Not Detected (NotDetected); Benzodiazepines Screen,Urine Not Detected (NotDetected); Cocaine Screen,Urine Not Detected (NotDetected); Methadone Screen, Urine Not Detected (NotDetected); Opiate Screen,Urine Detected (NotDetected); Phencyclidine Screen,Urine Not Detected (NotDetected); Tricyclic Antidepressant,Urine Not Detected (NotDetected); Urn Cannabinoid Scrn Detected (NotDetected)
[2024-03-13 18:13] LABS: Oxycodone Screen, Urine Not Detected (NotDetected)
--- NOTE | 2024-03-13 18:25 | US ---
EXAMINATION TYPE: US transvaginal DATE OF EXAM: 03/13/2024 COMPARISON: 09/04/2023 CLINICAL INDICATION: Female, 23 years old with history of low abd pain; low abd pain both sides, naus ea/vomiting. TECHNIQUE: Transvaginal (TV). Transabdominal grayscale sonographic images of the pelvis were acquired. Transvaginal sonographic im ages were medically necessary to better assess the following anatomy: Ovaries Doppler imaging: Color Doppler Images were obtained. Spectral doppler images were obtained. FINDINGS: Date of LMP: 03/05/2024 EXAM MEASUREMENTS: Uterus: 8.7 x 3.9 x 4.4 cm Endometrial Stripe: 0.5 cm Right Ovary: 3.9 x 1.8 x 2.4 cm Left Ovary: 2.5 x 1.5 x 3.0 cm 1. Uterus: Anteverted wnl 2. Endometrium: wnl 3. Right Ovary: follicular changes seen, wnl 4. Left Ovary: follicular changes seen, wnl Spectral, color and waveform doppler imaging shows good arterial and venous flow within the ovaries ; there is no evidence for ovarian torsion. 5. Bilateral Adnexa: peristalsing bowel seen 6. Posterior cul-de-sac: small amount of FF seen, can be physiologic in a female IMPRESSION: 1. Unremarkable pelvic ultrasound [facility], , 03/13/2024 6:23 PM
[2024-03-13] MEDS: METOCLOPRAMIDE 5 MG/ML 2 ML VIAL IVP STA (19:43)
--- NOTE | 2024-03-13 19:52 | CT ---
EXAMINATION TYPE: CT abdomen pelvis w con DATE OF EXAM: 03/13/2024 7:35 PM COMPARISON: None. CLINICAL INDICATION: Female, 23 years old with history of abdominal pain, acute, nonlocalized, Abdomi nal pain and n/v x2 days. TECHNIQUE: Axial images were obtained from above the diaphragm to the pubic rami in the axial plane a t 5 mm thick sections. Reconstructed images are reviewed on the computer in the coronal plane. CONTRAST: 100 ml mL of Isovue 300. Study performed without Oral Contrast DLP: 477.4 mGycm, Automated exposure control for dose reduction was used. FINDINGS: Limited CT sections are obtained the lung bases. The lung bases are clear. CT ABDOMEN: Liver: There is a cystlike area within the left lobe liver. Spleen: Splenomegaly is present measuring 14.5 cm. Normal less than 12.5 cm. Pancreas: Normal Adrenal glands: The adrenal glands are normal. Gallbladder: Normal Kidneys: No masses are evident. No hydronephrosis is present. No cysts are present. Delayed images were obtained through the kidneys, which remain unremarkable. Aorta: Normal Inferior vena cava: Normal. CT PELVIS: Loops of bowel within the abdomen and pelvis are normal. This study is without oral contrast limi ts bowel evaluation. Appendix: Normal as visualized. Urinary bladder: Normal. Genitourinary structures: Uterus is normal. Adnexa are are normal. Minimal free fluid is within the c ul-de-sac may be physiologic. Osseous structures: No suspicious lytic or sclerotic lesions. IMPRESSION: 1. No suspicious abnormality account for patient's symptoms. [facility], , 03/13/2024 7:50 PM
[2024-03-13] MEDS: HALOPERIDOL LACTATE 5 MG/ML 1 ML VIAL IVP STA (20:22)
[2024-03-13] MEDS: diphenhydrAMINE 50 MG/ML 1 ML VIAL IVP STA (20:22)
[2024-03-13 21:28] VITALS: BP 129/83; PULSE 73; TEMP 98
== END 2024-03-13 21:28 | disposition home or self-care (01) ==
LOC: EC 14:47
DX: R11.2 Nausea with vomiting, unspecified (principal); R10.84 Generalized abdominal pain; D72.829 Elevated white blood cell count, unspecified; F17.290 Nicotine dependence, other tobacco product, uncomplicated; Z88.8 Allergy status to other drugs, medicaments and biological substances
CPT/HCPCS: 36415; 80053; 82150; 83605; 83690; 85025; 81003; 81025; 80306; 93975; 76830; 74177; 99284; 96374; 96375 ×5; 96376; 96361 ×4; J1200; J1630; J2765; J2405; J1171; J1885; Q9967

== ENCOUNTER 2024-06-17 09:40 | Emergency (ER) | payer OTHER ==
--- NOTE | 2024-06-17 09:58 | ED ---
Chest Pain HPI - General Source: patient, RN notes reviewed Mode of arrival: ambulatory Limitations: no limitations <Catherine Sotomayor - Last Filed: 06/17/24 09:58> <Jim Naranjo - Last Filed: 06/17/24 11:04> - General Chief Complaint: Chest Pain Stated Complaint: Chest pain,vomiting Time Seen by Provider: 06/17/24 09:57 - History of Present Illness Initial Comments: Account: 24-year-old female presented the ER for evaluation of chest discomfort. Patient states she woke up this morning and upon standing she had abdominal cramping. Patient states she went to work and approximately 30 minutes at work she started to experience a 5 out of 6 chest discomfort. She admits to nausea and 3 episodes of emesis. No known cardiac history. Patient does report shortness of breath which has since improved since episode. Past medical history significant of factor V. (Catherine Sotomayor) - Related Data Home Medications Medication Instructions Recorded Confirmed medroxyPROGESTERone [Depo-Provera] 150 mg IM ONCE 08/10/22 08/10/22 Previous Rx's Medication Instructions Recorded Nitrofurantoin Monohyd/M-Cryst 100 mg PO Q12HR 5 Days #10 cap 08/10/22 [Macrobid] Amoxicillin 875 mg PO Q12HR 10 Days #20 tablet 10/17/22 Fluconazole [Diflucan] 150 mg PO ONCE #1 tab 06/14/23 Nitrofurantoin Monohyd/M-Cryst 100 mg PO Q12HR #10 cap 06/14/23 [Macrobid] metroNIDAZOLE [Flagyl] 500 mg PO BID #14 tab 06/14/23 Ondansetron Odt [Zofran Odt] 4 mg PO Q8HR PRN #10 tab 03/13/24 Ondansetron Odt [Zofran Odt] 4 mg PO Q8HR PRN #12 tab 06/17/24 Allergies Allergy/AdvReac Type Severity Reaction Status Date / Time cantaloupe AdvReac Nausea & Verified 06/17/24 09:44 Vomiting & Diarrhea Sesame Seed AdvReac Nausea & Verified 06/17/24 09:44 Vomiting & Diarrhea Review of Systems ROS Other: All systems not noted in ROS Statement are negative. <Catherine Sotomayor - Last Filed: 06/17/24 09:58> ROS Other: All systems not noted in ROS Statement are negative. <Jim Naranjo - Last Filed: 06/17/24 11:04> ROS Statement: Those systems with pertinent positive or pertinent negative responses have been documented in the HPI. Past Medical History Past Medical History: No Reported History Additional Past Medical History / Comment(s): MTHFR blood mutation, ovarian cyst rupture 2018, endometriosis History of Any Multi-Drug Resistant Organisms: None Reported Past Surgical History: Adenoidectomy, Ear Surgery Past Psychological History: Anxiety, Depression Smoking Status: Current every day smoker, Vaper Past Alcohol Use History: Rare Past Drug Use History: Marijuana <Catherine Sotomayor - Last Filed: 06/17/24 09:58> General Exam Limitations: no limitations <Catherine Sotomayor - Last Filed: 06/17/24 09:58> - General Exam Comments Initial Comments: Visual Physical Exam Vital signs reviewed General: Well-appearing, nontoxic, no acute distress. Head: Normocephalic, atraumatic Eyes: PERRLA, EOMI ENT: Airway patent Chest: Nonlabored breathing Skin: No visual rash, normal skin tone Neuro: Alert and oriented 3 Musculoskeletal: No gross abnormalities (Catherine Sotomayor) Course Vital Signs 06/17/24 09:41 Temperature 97.7 F Pulse Rate 104 H Respiratory 20 Rate Blood Pressure 139/107 O2 Sat by Pulse 100 Oximetry Chest Pain MDM <Catherine Sotomayor - Last Filed: 06/17/24 09:58> <Jim Naranjo - Last Filed: 06/17/24 11:04> - MDM I performed the quick note portion of this chart. Electronically signed by Catherine Sotomayor PA-C (Catherine Sotomayor) Was pt. sent in by a medical professional or institution ([facility], CUSTOMER SUCCESS SPECIALIST, urgent care, hospital, or usp...) When possible be specific @ -[No] Did you speak to anyone other than the patient for history (EMS, parent, family, police, friend...)? What history was obtained from this source @ -[No] Did you review nursing and triage notes (agree or disagree)? Why? @ -[I reviewed and agree with nursing and triage notes] Were old charts reviewed (outside hosp., previous admission, EMS record, old EKG, old radiological studies, urgent care reports/EKG's, usp records)? Report findings @ -[No old charts were reviewed] Differential Diagnosis (chest pain, altered mental status, abdominal pain women, abdominal pain men, vaginal bleeding, musculoskeletal, weakness, fever, dyspnea, syncope, headache, dizziness, GI bleed, back pain, seizure, CVA, palpatations, mental health)? @ -Differential Chest Pain: Stable Angina, Unstable Angina, STEMI, NSTEMI Aortic Dissection, Pneumothorax, Musculoskeletal, Esophageal Spasm GERD, Cholecystitis, Pancreatitis, Zoster, this is not meant to be an all-inclusive list. EKG interpreted by me (3pts min.). @ -See above X-rays interpreted by me (1pt min.). @ -Nonacute CT interpreted by me (1pt min.). @ -[None done] U/S interpreted by me (1pt. min.). @ -[None done] What testing was considered but not performed or refused? (CT, X-rays, U/S, labs)? Why? @ -[None] What meds were considered but not given or refused? Why? @ -[None] Was smoking cessation discussed for >3mins.? @ -[No] Were there social determinants of health that impacted care today? How? (Homelessness, low income, unemployed, alcoholism, drug addiction, transportation, low edu. Level, literacy, decrease access to med. care, [place] [facility], rehab)? @ -[No] Was there de-escalation of care discussed even if they declined (Discuss DNR or withdrawal of care, Hospice)? DNR status @ -[No] What co-morbidities impacted this encounter? (DM, HTN, Smoking, COPD, CAD, Cancer, CVA, ARF, Chemo, Hep., AIDS, mental health diagnosis, sleep apnea, morbid obesity)? @ -[None] Was patient admitted / discharged? Hospital course, mention meds given and route, prescriptions, significant lab abnormalities, going to OR and other pertinent info. @ -24-year-old female gastroenteritis. States that she has symptoms nausea vomiting diarrhea. She did have some associated chest pain. Patient seen and evaluated in the waiting room by quick note provider. Labs were ordered. Found to be unremarkable. Imaging studies are negative. Patient given IV fluids. Reevaluated bedside at 11:00 AM with improvement of symptoms. Patient discharged work note provided. Did you discuss the management of the patient with other professionals (professionals i.e. , PA, CUSTOMER SUCCESS SPECIALIST, lab, RT, psych nurse, social media strategist, heating operators engineer, teacher, president and chief operating officer, case management director)? Give summary @ -[No] Was critical care preformed (if so, how long)? @ -No Undiagnosed new problem with uncertain prognosis? @ -No Drug Therapy requiring intensive monitoring for toxicity (Heparin, Nitro, Insulin, Cardizem)? @ -No Were any procedures done? @ -No Diagnosis/symptom? Acute, or Chronic, or Acute on Chronic? Uncomplicated (without systemic symptoms) or Complicated (systemic symptoms)? @ -Gastroenteritis Side effects of treatment? @ -No Exacerbation, Progression, or Severe Exacerbation? @ -No Poses a threat to life or bodily function? How? (Chest pain, [place], [place], pneumonia, PE, COPD, DKA, ARF, appy, cholecystitis, CVA, Diverticulitis, Homicidal, Suicidal, threat to staff... and all critical care pts) @ -No (Jim Naranjo) Disposition <Catherine Sotomayor - Last Filed: 06/17/24 09:58> Is patient prescribed a controlled substance at d/c from ED?: No Time of Disposition: 11:03 <Jim Naranjo - Last Filed: 06/17/24 11:04> Clinical Impression: Gastroenteritis Disposition: HOME SELF-CARE Condition: Fair Instructions (If sedation given, give patient instructions): Gastroenteritis (ED) Prescriptions: Ondansetron Odt [Zofran Odt] 4 mg PO Q8HR PRN #12 tab PRN Reason: Nausea Referrals: None,Stated [Primary Care Provider] - 1-2 days
[2024-06-17 10:20] LABS: Basophils % (A) 1 %; Eosinophils # (A) 0.1 k/uL (0-0.7); Eosinophils % (A) 2 %; HCT 45.7 % (34.0-46.0); HGB 14.4 gm/dL (11.4-16.0); Lymphocytes # (A) 1.4 k/uL (1.0-4.8); Lymphocytes % (A) 25 %; MCH 28.5 pg (25.0-35.0); MCHC 31.5 g/dL (31.0-37.0); MCV 90.5 fL (80.0-100.0); Mean Platelet Volume 8.2; Monocytes # (A) 0.2 k/uL (0-1.0); Monocytes % (A) 3 %; Neutrophils # (A) 3.8 k/uL (1.3-7.7); Neutrophils % (A) 68 %; Platelet Count 218 k/uL (150-450); RBC 5.04 m/uL (3.80-5.40); RDW 12.6 % (11.5-15.5); WBC 5.6 k/uL (3.8-10.6)
[2024-06-17 10:21] LABS: ALT 24 U/L (4-34); AST 22 U/L (14-36); African American GFR (CKD) >90 (>60 ml/min/1.73 sqM); Albumin 4.6 g/dL (3.5-5.0); Alkaline Phosphatase 32 U/L (38-126); Anion Gap 10 mmol/L; Blood Urea Nitrogen 9 mg/dL (7-17); Calcium 9.3 mg/dL (8.4-10.2); Carbon Dioxide 24 mmol/L (22-30); Chloride 104 mmol/L (98-107); Glucose 96 mg/dL (74-99); Magnesium 1.9 mg/dL (1.6-2.3); Non-African American GFR(CKD) >90 (>60 ml/min/1.73 sqM); Potassium 3.8 mmol/L (3.5-5.1); Sodium 138 mmol/L (137-145); Total Bilirubin 0.6 mg/dL (0.2-1.3); Total Protein 7.2 g/dL (6.3-8.2)
[2024-06-17 10:23] LABS: INR 1.1 (<1.2); Partial Thromboplastin Time 22.6 sec (22.0-30.0); Prothrombin Time 12.1 sec (10.0-12.5)
--- NOTE | 2024-06-17 10:38 | XR ---
EXAMINATION TYPE: XR chest 2V DATE OF EXAM: 06/17/2024 10:12 AM COMPARISON: Chest radiographs from 09/29/2015 CLINICAL INDICATION: Female, 24 years old with history of Chest Pain; [facility] TECHNIQUE: XR chest 2V Frontal and lateral views of the chest. FINDINGS: Lungs/Pleura: There is no evidence of pleural effusion, focal consolidation, or pneumothorax. Pulmonary vascularity: Unremarkable. Heart/mediastinum: Cardiomediastinal silhouette is unremarkable. Musculoskeletal: No acute osseous pathology. IMPRESSION: No acute cardiopulmonary disease/process. [facility], , 06/17/2024 10:35 AM
[2024-06-17 10:44] LABS: Appearance,Urine Cloudy (Clear); Bacteria,Urine Many /hpf; Bilirubin,Urine Negative (Negative); Blood,Urine Negative (Negative); Color,Urine Yellow; Glucose,Urine (UA) Negative (Negative); Ketones,Urine Negative (Negative); Leukocyte Esterase,Urine Moderate (Negative); Mucus,Urine Moderate /hpf; Nitrite,Urine Negative (Negative); Protein,Urine Trace (Negative); Specific Gravity,Urine 1.026 (1.001-1.035); Squamous Epithelial Cell,Urine 4 /hpf (0-4); Urobilinogen,Urine <2.0 mg/dL (<2.0); WBC,Urine 11 /hpf (0-5)
[2024-06-17 10:44] LABS: Influenza A Not Detected (Not Detectd); Influenza B Not Detected (Not Detectd); RSV Not Detected (Not Detectd)
[2024-06-17] MEDS: KETOROLAC 15 MG/ML 1 ML VIAL IVP STA (10:56)
[2024-06-17 11:57] VITALS: BP 130/88; PULSE 90; RESP 18; TEMP 98
== END 2024-06-17 11:57 | disposition home or self-care (01) ==
LOC: EC 09:40
DX: K52.9 Noninfective gastroenteritis and colitis, unspecified (principal); F17.290 Nicotine dependence, other tobacco product, uncomplicated; Z88.8 Allergy status to other drugs, medicaments and biological substances
CPT/HCPCS: 36415; 93005; 85379; 80053; 83735; 84484; 85025; 85610; 85730; 81001; 81025; 87086; 87636; 71046; 99285; 96374; J1885

== ENCOUNTER 2024-09-27 07:54 | Emergency (ER) | payer OTHER ==
[2024-09-27 08:02] VITALS: BP 101/68; PULSE 118; RESP 20; TEMP 99.4
--- NOTE | 2024-09-27 08:19 | ED ---
ENT HPI - General Chief complaint: Headache Stated complaint: headache Time Seen by Provider: 09/27/24 07:57 Source: patient, RN notes reviewed Mode of arrival: ambulatory Limitations: no limitations - History of Present Illness Initial comments: This is a 24-year-old female who presents to the emergency department for a headache and a sore throat. States that the sore throat started 2 days ago but seems to be getting worse. She did have a negative strep test yesterday. States that her tonsils are swollen with white spots. This is making it diffi cult to speak and swallow due to the discomfort. Yesterday she started to develop a headache as well. She does note having minor relief with naproxen. Denies any coughing/congestion, fevers/chills, or sick contacts. MD complaint: sore throat - Related Data Home Medications Medication Instructions Recorded Confirmed medroxyPROGESTERone [Depo-Provera] 150 mg IM ONCE 08/10/22 08/10/22 Previous Rx's Medication Instructions Recorded Nitrofurantoin Monohyd/M-Cryst 100 mg PO Q12HR 5 Days #10 cap 08/10/22 [Macrobid] Amoxicillin 875 mg PO Q12HR 10 Days #20 tablet 10/17/22 Fluconazole [Diflucan] 150 mg PO ONCE #1 tab 06/14/23 Nitrofurantoin Monohyd/M-Cryst 100 mg PO Q12HR #10 cap 06/14/23 [Macrobid] metroNIDAZOLE [Flagyl] 500 mg PO BID #14 tab 06/14/23 Ondansetron Odt [Zofran Odt] 4 mg PO Q8HR PRN #10 tab 03/13/24 Ondansetron Odt [Zofran Odt] 4 mg PO Q8HR PRN #12 tab 06/17/24 Amoxic-Pot Clav 875-125Mg 1 tab PO Q12HR 10 Days #20 tab 09/27/24 [Augmentin 875-125] Ketorolac [Toradol] 10 mg PO Q6HR PRN #15 tab 09/27/24 Lidocaine Viscous [Xylocaine 5 - 10 ml PO Q4-6H PRN #100 ml 09/27/24 Viscous 2%] Allergies Allergy/AdvReac Type Severity Reaction Status Date / Time cantaloupe AdvReac Nausea & Verified 09/27/24 08:02 Vomiting & Diarrhea Sesame Seed AdvReac Nausea & Verified 09/27/24 08:02 Vomiting & Diarrhea Review of Systems ROS Statement: Those systems with pertinent positive or pertinent negative responses have been documented in the HPI. ROS Other: All systems not noted in ROS Statement are negative. Past Medical History Past Medical History: No Reported History Additional Past Medical History / Comment(s): MTHFR blood mutation, ovarian cyst rupture 2018, endometriosis History of Any Multi-Drug Resistant Organisms: None Reported Past Surgical History: Adenoidectomy, Ear Surgery Past Psychological History: Anxiety, Depression Smoking Status: Current every day smoker, Vaper Past Alcohol Use History: Rare Past Drug Use History: Marijuana General Exam Limitations: no limitations General appearance: alert, in no apparent distress Head exam: Present: atraumatic, normocephalic, normal inspection Eye exam: Present: normal appearance, PERRL, EOMI. Absent: scleral icterus, conjunctival injection, periorbital swelling ENT exam: Present: other (Posterior pharyngeal erythema with tonsillar hypertrophy and exudate) Respiratory exam: Present: normal lung sounds bilaterally. Absent: respiratory distress, wheezes, rales, rhonchi, stridor Cardiovascular Exam: Present: regular rate, normal rhythm Neurological exam: Present: alert, oriented X3, CN II-XII intact Psychiatric exam: Present: normal affect, normal mood Course Vital Signs 09/27/24 08:00 Temperature 99.4 F Pulse Rate 118 H Respiratory 20 Rate Blood Pressure 101/68 O2 Sat by Pulse 98 Oximetry Medical Decision Making - Medical Decision Making This is a 24-year-old female who presents to the emergency department for a sore throat. Was pt. sent in by a medical professional or institution? @ -No Did you speak to anyone other than the patient for history? @ -No Did you review nursing and triage notes? @ -Yes, and I agree, it is accurate with regards to the patient's symptoms. Were old charts reviewed? @ -No Differential Diagnosis? @ -Differential Sore Throat: Strep pharyngitis, herpes zoster, COVID, influenza, GERD, allergic rhinitis, mononucleosis, this is not meant to be an all-inclusive list. EKG interpreted by me (3pts min.)? @ -Not obtained X-rays interpreted by me (1pt min.)? @ -Not obtained CT interpreted by me (1pt min.)? @ -Not obtained U/S interpreted by me (1pt. min.)? @ -Not obtained What testing was considered but not performed? (CT, X-rays, U/S, labs)? Why? @ -None What meds were considered but not given? Why? @ -None Did you discuss the management of the patient with other professionals? @ -No Did you reconcile home meds? @ -No Was smoking cessation discussed for >3mins.? @ -No Was critical care preformed (if so, how long)? @ -No Were there social determinants of health that impacted care today? How? (Homelessness, low income, unemployed, alcoholism, drug addiction, transportation, low edu. Level, literacy, decrease access to med. care, skilled nursing, rehab)? @ -No Was there de-escalation of care discussed even if they declined? (Discuss DNR or withdrawal of care, Hospice)? @ -No What co-morbidities impacted this encounter? (DM, HTN, Smoking, COPD, CAD, Cancer, CVA, Hep., AIDS, mental health diagnosis, sleep apnea, morbid obesity)? @ -None Was patient admitted / discharged? @ -Discharged. Rapid strep test negative. COVID, influenza, and RSV testing negative. While the strep test was negative, she did have fairly prominent tonsillar hypertrophy with exudates and due to the possibility of a false negative, advised that we will treat her with a course of antibiotics. Augmentin prescribed. Toradol and viscous lidocaine prescribed for pain c ontrol. She was also given Toradol and Decadron in the emergency department with improvement in symptoms. Patient discharged home in stable condition and advised to follow-up with her PCP. Case discussed with ED attending Dr. Lau. Return precautions reviewed in depth, the patient is instructed to return to the emergency department with any new, worsening, or concerning symptoms. Patient verbalized understanding. Undiagnosed new problem with uncertain prognosis? @ -None Drug Therapy requiring intensive monitoring for toxicity (Heparin, Nitro, Ins ulin, Cardizem)? @ -None Were any procedures done? @ -None Diagnosis/symptom? @ -Bacterial pharyngitis, headache Acute, or Chronic, or Acute on Chronic? @ -Acute Uncomplicated (without systemic symptoms) or Complicated (systemic symptoms)? @ -Uncomplicated Side effects of treatment? @ -None Exacerbation, Progression, or Severe Exacerbation] @ -Not applicable Poses a threat to life or bodily function? @ -No - Lab Data Lab Results 09/27/24 09/27/24 Range/Units 08:29 08:29 Influenza Type A (PCR) Not Detected (Not Detectd) Influenza Type B (PCR) Not Detected (Not Detectd) RSV (PCR) Not Detected (Not Detectd) SARS-CoV-2 (PCR) Not Detected (Not Detectd) Group A Strep (PCR) NOT DETECTED (Not Detectd) Disposition Clinical Impression: Bacterial pharyngitis, Headache Disposition: HOME SELF-CARE Instructions (If sedation given, give patient instructions): Pharyngitis (ED), Acute Headache (ED) Additional Instructions: Return to the emergency department with any new, worsening, or concerning sy mptoms. Take the antibiotic as prescribed for 10 days. Take the Toradol with Tylenol as needed for pain relief. If you choose to take the Toradol, do not take any other anti-inflammatories such as ibuprofen, take one or the other. You can use the viscous lidocaine as needed for the sore throat. Follow up with your primary care provider in 1-2 days. Prescriptions: Amoxic-Pot Clav 875-125Mg [Augmentin 875-125] 1 tab PO Q12HR 10 Days #20 tab Ketorolac [Toradol] 10 mg PO Q6HR PRN #15 tab PRN Reason: Pain Lidocaine Viscous [Xylocaine Viscous 2%] 5 - 10 ml PO Q4-6H PRN #100 ml PRN Reason: Sore Throat Is patient prescribed a controlled substance at d/c from ED?: No Referrals: None,Stated [Primary Care Provider] - 1-2 days Time of Disposition: 09:34
[2024-09-27] MEDS: KETOROLAC 15 MG/ML 1 ML VIAL IM STA (08:36)
[2024-09-27] MEDS: LIDOCAINE VISCOUS 2% 15 ML CUP PO ONE (08:36)
[2024-09-27] MEDS: DEXAMETHASONE SOD PHOSPHATE 10 MG/ML 1 ML VIAL IM STA (08:36)
[2024-09-27 09:28] LABS: Influenza A Not Detected (Not Detectd); Influenza B Not Detected (Not Detectd); RSV Not Detected (Not Detectd)
== END 2024-09-27 10:19 | disposition home or self-care (01) ==
LOC: EC 07:54
DX: J02.8 Acute pharyngitis due to other specified organisms (principal); R51.9 Headache, unspecified; F17.290 Nicotine dependence, other tobacco product, uncomplicated; Z91.018 Allergy to other foods; Z88.8 Allergy status to other drugs, medicaments and biological substances
CPT/HCPCS: 87651; 87636; 99284; 96372 ×2; J1100; J1885